=== PATIENT | female | born 1960 | race Caucasian/White ===

== ENCOUNTER 2021-11-17 07:10 | Outpatient (CLI) | payer OTHER ==
[~2021-11-17] VITALS: Ht 172.7 cm; Wt 77.3 kg
[~2021-11-17 07:10] MED LIST: DOXY100C2 PO; GFCD10B PO; MTP50T; MTP50T PO; NAPR-243 PO; ONDN4T PO; SERT50TA; TRM50T PO
[2021-11-22] MEDS ORDERED: AMLO-250 PO (14:35)
== END 2021-11-22 15:45 | disposition home or self-care (01) ==
LOC: PREOP 07:10
PROVIDERS: ATTEND Surgery
DX: Z01.818 Encounter for other preprocedural examination (principal)

== ENCOUNTER 2021-12-22 06:03 | Day surgery (SDC) | payer OTHER ==
[2021-12-22] VITALS (11 sets, daily range): BP systolic 75–148; BP diastolic 46–86
[~2021-12-22] VITALS: Ht 172.7 cm; Wt 77.3 kg
[~2021-12-22 06:03] MED LIST changes: +AMLO-250 PO
[2021-12-22] MEDS ORDERED: ceFAZolin 2 GM IV Premixed 50 ML ONE (06:23)
[2021-12-22] MEDS ORDERED: ceFAZolin 2 GM IV Premixed 50 ML IV ONE (06:45)
[2021-12-22] MEDS ORDERED: LACTATED RINGERS 1,000 ML IV PRN (06:45)
[2021-12-22] MEDS ORDERED: LIDOCAINE/EPI 1%-1:200,000 (XYLOCAINE) 30 ML VIAL ONE (07:07)
[2021-12-22] MEDS ORDERED: ONDANSETRON 4 MG/2 ML (SDV) Z0FRAN ONE (08:02)
[2021-12-22] MEDS ORDERED: proPOfol 200 MG/20 ML (DIPRIVAN) VIAL IV ONE (08:02)
[2021-12-22] MEDS ORDERED: fentaNYL INJ 100 MCG/2 ML AMP ONE (08:02)
[2021-12-22] MEDS ORDERED: LIDOCAINE PF 2% 5 ML (XYLOCAINE) VIAL ONE (08:02)
[2021-12-22] MEDS ORDERED: ROCURONIUM 10 MG/ML 5 ML SYRINGE IV ONE (08:02)
[2021-12-22] MEDS ORDERED: SEVOFLURANE (ULTANE) 15 ML INHAL SOLN ONE ×2 (08:02→09:01)
[2021-12-22] MEDS ORDERED: MIDAZOLAM 2 MG/2 ML (VERSED) VIAL ONE (08:02)
[2021-12-22] MEDS ORDERED: ATROPINE INJ 0.4 MG/ML SDV ONE (08:51)
--- NOTE | 2021-12-22 09:10 | Anesthesia-General Post-Op ---
General Patient Condition Mental Status/LOC: Same as Preop Cardiovascular: Satisfactory Nausea/Vomiting: Absent Respiratory: Satisfactory Pain: Controlled Complications: Absent Post Op Complications Complications None Follow Up Care/Instructions Patient Instructions None needed. Anesthesia/Patient Condition Patient Condition Patient is doing well, no complaints, stable vital signs, no apparent adverse anesthesia problems. No complications reported per nursing. JACK DEL CID CRNA Dec 22, 2021 09:10
[2021-12-22] MEDS ORDERED: fentaNYL INJ 100 MCG/2 ML AMP IVP ONE (09:15)
[2021-12-22] MEDS ORDERED: MEPERIDINE (DEMEROL) INJ 50 MG/ML IVP ONE (09:15)
[2021-12-22] MEDS ORDERED: morphine INJ 10 MG/ML 1ML (SYR OR VIAL) IVP ONE (09:15)
[2021-12-22] MEDS ORDERED: ONDANSETRON 4 MG/2 ML (SDV) Z0FRAN IVP PRN (09:15)
--- NOTE | 2021-12-22 09:44 | Discharge Inst-Simple/Standard ---
Discharge Inst-Standard Patient Instructions/Follow Up Plan of Care/Instructions/FU: 12-14 days Elliot (suture removal) Activity as Tolerated: Yes Discharge Diet: Regular Diet Other Inst to Patient Follow up Appt: Make appointment for 12-14 day Instructions: No strenuous activity. May shower in 24 hours, no tub bath or soaking. Use incentive spirometer at home as directed. No Smoking Skin/Wound Care: Keep area clean and dry. Symptoms to Report: Appetite Changes, Extremity Discoloration, Numbness/Tingling, Swelling Increased, Bleeding Excessive, Eyesight Changes, Pain Increased, Urine Color Change, Constipation(Persistent), Fever over 101 degree F, Pain/Pressure in chest, Urinating Difficulty, Cough Up/Vomit Blood, Heart Beat Irreg/Pounding, Pain/Pressure in jaw, Vaginal Bleeding Increase, Cramps in feet or legs, Light headedness, Pain/Pressure in shoulder, Diarrhea(Persistent), Memory Changes Suddenly, Questions/Concerns, Weight gain consecutive days, Dizziness/Fainting, Nausea/Vomiting, Shortness of Breath, Weight gain over 2 pounds If questions or concerns contact your physician Or seek help at emergency department. VIRGINIA HERRON DO Dec 22, 2021 09:44
--- NOTE | 2021-12-23 09:21 | OPERATIVE REPORT ---
DATE OF SERVICE: 12/22/2021 PREOPERATIVE DIAGNOSIS: Right buttock cyst. POSTOPERATIVE DIAGNOSIS: Right buttock cyst. PROCEDURE: Excision of right buttock cyst 3.5 x 1.3 x 2.5 cm. SURGEON: Virginia Zarate DO ANESTHESIA: General with local. ESTIMATED BLOOD LOSS: Minimal. COMPLICATIONS: None. INDICATIONS: The patient is a 61-year-old female with a cyst on the right buttock area. She understands risks and benefits of procedure and wishes to proceed. Consent was signed in the chart. DESCRIPTION OF PROCEDURE: The patient was taken to the operating suite. She was prepped and draped in a sterile fashion. Timeout was performed. Local anesthetic was infiltrated around the cyst area. An elliptical incision was made around the cyst where there was a small opening in the skin. Cautery was used to dissect around it until completely removed, with cavity size measuring approximately 3.5 x 1.3 x 2.5 cm. A small hole was made, and the cyst was drained a little bit of the cystic material, but was able to remove the entire cyst wall. Wound was then irrigated with copious amounts of irrigation. Skin was then closed using vertical mattress with 3-0 nylon. The area was washed, and dried and sterile bandage was applied. The cyst was in the subcutaneous tissue plane. Job ID: [id number] DocumentID: [id number] Dictated Date: 12/22/2021 20:43:07 Building Maintenance Worker Date: 12/23/2021 00:40:17 Dictated By: VIRGINIA ZARATE DO
== END 2021-12-22 10:55 | disposition home or self-care (01) ==
LOC: SDC 06:03
PROVIDERS: ATTEND Surgery
DX: L72.0 Epidermal cyst (principal); F17.210 Nicotine dependence, cigarettes, uncomplicated; Z86.16 Personal history of COVID-19
CPT/HCPCS: 87081

== ENCOUNTER 2022-07-19 11:51 | Inpatient (IN) | payer OTHER ==
[~2022-07-19] VITALS: Ht 172.7 cm; Wt 80.1 kg
[2022-07-19 12:09] LABS: BASOPHILS % (AUTO) 0 % (0-10); EOSINOPHILS % (AUTO) 0 % (0-10); HEMATOCRIT 42 % (35-52); HEMOGLOBIN 14.3 g/dL (11.5-16.0); LYMPHOCYTES # (AUTO) 2.9 10^3/uL (1.0-4.0); LYMPHOCYTES % (AUTO) 28 % (12-44); MEAN CORPUSCULAR HEMOGLOBIN 33 pg (25-34); MEAN CORPUSCULAR HGB CONC 34 g/dL (32-36); MEAN CORPUSCULAR VOLUME 95 fL (80-99); MEAN PLATELET VOLUME 9.7 fL (9.0-12.2); MONOCYTES # (AUTO) 0.4 10^3/uL (0.0-1.0); MONOCYTES % (AUTO) 4 % (0-12); NEUTROPHILS # (AUTO) 7.1 10^3/uL (1.8-7.8); NEUTROPHILS % (AUTO) 68 % (42-75); PLATELET COUNT 272 10^3/uL (130-400); WHITE BLOOD COUNT 10.5 10^3/uL (4.3-11.0)
[2022-07-19 12:14] LABS: ALBUMIN 4.6 GM/DL (3.2-4.5); CHLORIDE 106 MMOL/L (98-107); POTASSIUM 3.7 MMOL/L (3.6-5.0); SODIUM 140 MMOL/L (135-145)
[2022-07-19 12:15] LABS: CALCIUM 9.6 MG/DL (8.5-10.1)
[2022-07-19 12:16] LABS: GLUCOSE 123 MG/DL (70-105)
[2022-07-19 12:17] LABS: CARBON DIOXIDE 21 MMOL/L (21-32)
[2022-07-19 12:18] LABS: BILIRUBIN,TOTAL 0.4 MG/DL (0.1-1.0)
[2022-07-19 12:20] LABS: ALKALINE PHOSPHATASE 81 U/L (40-136); GFR ESTIMATED 64
[2022-07-19 12:21] LABS: BUN/CREATININE RATIO 11
[2022-07-19 12:23] LABS: ALANINE AMINOTRANSFERASE 11 U/L (0-55)
[2022-07-19 12:24] LABS: FIBRIN DEGRADATION PRODUCTS 1.8 UG/ML (0.00-0.49); PROTHROMBIN TIME PATIENT 13.2 SEC (12.2-14.7)
[2022-07-19] MEDS ORDERED: IOHEXOL 350 MG/ML 100 ML (OMNIPAQUE 350) VIAL IV ONE (12:30)
[2022-07-19] MEDS ORDERED: CATHETER FLUSH 10 ML SYR IV PRN (12:30)
[2022-07-19] MEDS ORDERED: NS 100 ML (IVPB) BAG IV ONE (12:30)
[2022-07-19] MEDS ORDERED: HOLD METFORMIN - RECEIVED CONTRAST 20 ML VIAL IV SCH (12:30)
[2022-07-19 12:39] LABS: BILIRUBIN,URINE NEGATIVE (NEGATIVE); CLARITY,URINE CLEAR; COLOR,URINE YELLOW; GLUCOSE, URINE (UA) NEGATIVE (NEGATIVE); KETONES,URINE NEGATIVE (NEGATIVE); LEUKOCYTE ESTERASE ,URINE NEGATIVE (NEGATIVE); NITRITE,URINE NEGATIVE (NEGATIVE); PH,URINE 5.5 (5-9); PROTEIN,URINE NEGATIVE (NEGATIVE)
--- NOTE | 2022-07-19 12:44 | Diagnostic Imaging Report ---
INDICATION: Possible stroke. TIME OF EXAM: 12:21 p.m. Comparison is made with prior chest from 05/15/2013. FINDINGS: Heart size is normal. Lungs are clear. No infiltrates are seen. There is no effusion or pneumothorax. IMPRESSION: No acute cardiopulmonary process is detected. Dictated by: Dictated on workstation # [id number]
--- NOTE | 2022-07-19 12:44 | Diagnostic Imaging Report ---
PROCEDURE: CT head wo r/o stroke. TECHNIQUE: Multiple contiguous axial images were obtained through the brain without the use of intravenous contrast. Auto Exposure Controls were utilized during the CT exam to meet ALARA standards for radiation dose reduction. INDICATION: Weakness and double vision. COMPARISON: No prior studies are available for comparison. FINDINGS: Ventricles and sulci are within normal limits. There is periventricular low attenuation, consistent with chronic microvascular ischemia. No sulcal effacement or midline shift is identified. No acute intra-axial or extra-axial hemorrhage is detected. Cisterns are patent. Visualized paranasal sinuses are clear. IMPRESSION: Changes of chronic microvascular ischemia. No acute intracranial process is detected. Dictated by: Dictated on workstation # [id number]
--- NOTE | 2022-07-19 12:48 | Diagnostic Imaging Report ---
PROCEDURE: CT angiography of the head and CT angiography of the neck with and without contrast. TECHNIQUE: Contiguous noncontrast images were obtained from the skull base through the vertex. After intravenous contrast administration, helical CT angiography of the neck was performed. Source data was reformatted into 3D MIP projections. Delayed post contrast acquisition was also obtained. Auto Exposure Controls were utilized during the CT exam to meet ALARA standards for radiation dose reduction. INDICATION: Diplopia and weakness all over. No relevant comparison. Delayed postcontrast head CT revealed no abnormal or suspicious parenchymal or meningeal enhancement. There is some patchy subcortical and periventricular white matter hypodensities which may be small vessel sequelae. No sulcal effacement. There is patency of the major dural venous sinuses. There is no contrast extravasation. Left common carotid arises off the innominate as a variant. Great vessels showed no hemodynamically significant stenosis with moderate mixed soft and hard plaque in the left subclavian proximally. The right cervical vertebral artery is diminutive from its origin through its intradural segment, the left is of good caliber and dominant. There is mild intimal thickening and soft plaque at the left greater than right carotid bulb and bifurcation without significant stenosis. The major external carotid branches are widely patent. Soft plaque stenosis the origin of the right internal carotid by about 50% focally. Beyond that level its well opacified and normal in caliber. Head: There is a diminutive intradural right vertebral artery with dominant left vertebral nonfocal and widely patent. The basilar is widely patent. The bilateral P[employer] segments are well opacified and widely patent. The intracranial ICAs demonstrate non-stenosing calcified plaque at their cavernous segments. A1 segments patent. The a common patent. The bilateral anterior cerebral arteries are widely patent. The bilateral middle cerebral arterial segments and their primary branches widely patent. No thrombus, occlusion, aneurysm or vascular malformation is identified. IMPRESSION: Brain shows patchy nonspecific white matter changes but no hemorrhage or mass. CT angiogram neck shows a moderate 50% stenosis proximal right ICA owing to soft plaque, there is a dominant widely patent left vertebral artery and a diminutive right cervical vertebral artery. Head: No hemodynamic significant intracranial arterial stenosis, thrombus, aneurysm or vascular malformation. Dictated by: Dictated on workstation # [id number]
[2022-07-19] MEDS ORDERED: TENECTEPLASE 50 MG VIAL IV ONE ×2 (12:57→13:00)
[2022-07-19 13:11] LABS: BACTERIA,URINE FEW /HPF
[2022-07-19 13:12] LABS: AMORPHOUS SEDIMENT,UR MOD AMOR URATES /LPF
--- NOTE | 2022-07-19 13:27 | ED Neurological Problem ---
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 ALSO FEELS WEAK ALL OVER. Source: patient, family Exam Limitations: no limitations History of Present Illness Date Seen by Provider: Jul 19, 2022 Time Seen by Provider: 11:50 Initial Comments This 61-year-old woman presents to the emergency room with complaints of sudden onset of diplopia and disequilibrium that started abruptly at approximately 1045. Vision is near normal when looking to the left or straightahead, but she develops significant diplopia when looking to the right. Vision is slightly blurry to her when looking with the right eye alone, and that blurriness seems to be worse in the inferior [id number]. She also reports some numbness of the right corner of her mouth. She has not noted any significant weakness of the extremities. She denies any use of blood thinning medications. She does have history of hypertension and took her medications shortly before onset of symptoms. She is notably hypertensive during assessment. She has Kinesiotape on the left ankle due to a reported left ankle strain yesterday. NIH stroke score was 3. Stroke activation was paged. Her primary care provider is Dr. Dani doyle. Allergies and Home Medications Allergies Coded Allergies: No Known Drug Allergies (Unverified , 12/22/21) Patient Home Medication List Home Medication List Reviewed: Yes Amlodipine Besylate (Amlodipine Besylate) 5 Mg Tablet, 5 MG PO DAILY, (Reported) Entered as Reported by: MARY GRACE DIAL on 11/22/21 1435 Metoprolol Tartrate (Metoprolol Tartrate 50 Mg) 50 Mg Tablet, 1 EACH PO BID, (Reported) Entered as Reported by: EDMOND GUTIERREZ on 05/01/13 1601 Ondansetron Hcl (Zofran Po) 4 Mg Tab, 4 MG PO Q4H Prescribed by: NATHALY MOSQUERA on 05/15/13 1112 Sertraline Hcl (Zoloft) 50 Mg Tablet, (Reported) Entered as Reported by: KITTY GUTIERREZ on 07/21/09 0933 Tramadol Hcl (Ultram) 50 Mg Tab, 50 MG PO Q4H Prescribed by: NATHALY MOSQUERA on 05/01/13 1800 Review of Systems Review of Systems Constitutional: no symptoms reported Eyes: See HPI Ears, Nose, Mouth, Throat: no symptoms reported Respiratory: no symptoms reported Cardiovascular: see HPI Gastrointestinal: no symptoms reported Genitourinary: no symptoms reported : No Musculoskeletal: see HPI Skin: no symptoms reported Psychiatric/Neurological: See HPI Endocrine: No Symptoms Reported Hematologic/Lymphatic: No Symptoms Reported Past Sehzxtv-Bbrkmp-Pkoccx Hx Patient Social History Tobacco Use?: Yes Tobacco type used: Cigarettes Smoking Status: Current Everyday Smoker Substance use?: No Alcohol Use?: No Immunizations Up To Date First/Initial COVID19 Vaccinat: 12/29 Second COVID19 Vaccination Suhas: UNKNOWN 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 Past Medical History Surgeries: Yes Abdominal (Hemicolectomy due to colon polyps), Hysterectomy Respiratory: No Currently Using CPAP: No Currently Using BIPAP: No Cardiac: Yes Hypertension Neurological: No Reproductive Disorders: No 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 oz. 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 Vision slightly blurry in the right eye.), motor weakness (Slight weakness of the left leg) Crainal Nerves: normal hearing, normal speech, PERRL Coordination/Gait: normal finger to nose Motor/Sensory: no motor deficit, no sensory deficit Skin: normal color, warm/dry Stroke NIH Stroke Scale Assessment Select: Initial Level of Consciousness: 0=Alert (0), Level of Consciousness- Questions: 0=Answers both month/age (0), LOC Commands: 0=Performs both tasks (0), Gaze: Partial Gaze Palsy (1), Visual Ortiz: 1=Partial hemianopia (1), Facial Movement (Facial Paresis): 0=Normal symmetrical mnt (0), Motor Function-Arms Right: 0=Amputation/Joint fused (0), Motor Function-Arms Left: 0=Amputation/Joint fused (0), Motor Function-Legs Right: 0=No drift (0), Motor Function-Legs Left: 1=Drift (1), Limb Ataxia: 0=Absent (0), Sensory: 0=Normal:no loss (0), Best Language: 0=No aphasia (0), Dysarthria: 0=Normal (0), Extinction & Inattention: 0=No abnormality (0), Total: 3 Progress/Results/Core Measures Results/Orders Lab Results Laboratory Tests Test 07/19/22 11:55 07/19/22 11:58 07/19/22 12:32 Range/Units White Blood Count 10.5 4.3-11.0 10^3/uL Red Blood Count 4.39 3.80-5.11 10^6/uL Hemoglobin 14.3 11.5-16.0 g/dL Hematocrit 42 35-52 % Mean Corpuscular Volume 95 80-99 fL Mean Corpuscular Hemoglobin 33 25-34 pg Mean Corpuscular Hemoglobin Concent 34 32-36 g/dL Red Cell Distribution Width 12.2 10.0-14.5 % Platelet Count 272 130-400 10^3/uL Mean Platelet Volume 9.7 9.0-12.2 fL Immature Granulocyte % (Auto) 0 % Neutrophils (%) (Auto) 68 42-75 % Lymphocytes (%) (Auto) 28 12-44 % Monocytes (%) (Auto) 4 0-12 % Eosinophils (%) (Auto) 0 0-10 % Basophils (%) (Auto) 0 0-10 % Neutrophils # (Auto) 7.1 1.8-7.8 10^3/uL Lymphocytes # (Auto) 2.9 1.0-4.0 10^3/uL Monocytes # (Auto) 0.4 0.0-1.0 10^3/uL Eosinophils # (Auto) 0.0 0.0-0.3 10^3/uL Basophils # (Auto) 0.0 0.0-0.1 10^3/uL Immature Granulocyte # (Auto) 0.0 0.0-0.1 10^3/uL Prothrombin Time 13.2 12.2-14.7 SEC INR Comment 1.0 0.8-1.4 Activated Partial Thromboplast Time 35 24-35 SEC D-Dimer 1.80 H 0.00-0.49 UG/ML Sodium Level 140 135-145 MMOL/L Potassium Level 3.7 3.6-5.0 MMOL/L Chloride Level 106 98-107 MMOL/L Carbon Dioxide Level 21 21-32 MMOL/L Anion Gap 13 5-14 MMOL/L Blood Urea Nitrogen 11 7-18 MG/DL Creatinine 1.00 0.60-1.30 MG/DL Estimat Glomerular Filtration Rate 64 BUN/Creatinine Ratio 11 Glucose Level 123 H 70-105 MG/DL Calcium Level 9.6 8.5-10.1 MG/DL Corrected Calcium 8.5-10.1 MG/DL Total Bilirubin 0.4 0.1-1.0 MG/DL Aspartate Amino Transf (AST/SGOT) 17 5-34 U/L Alanine Aminotransferase (ALT/SGPT) 11 0-55 U/L Alkaline Phosphatase 81 40-136 U/L Troponin I < 0.028 <0.028 NG/ML Total Protein 8.0 6.4-8.2 GM/DL Albumin 4.6 H 3.2-4.5 GM/DL Glucometer 125 H 70-110 MG/DL Urine Color YELLOW Urine Clarity CLEAR Urine pH 5.5 5-9 Urine Specific [place] 1.020 1.016-1.022 Urine Protein NEGATIVE NEGATIVE Urine Glucose (UA) NEGATIVE NEGATIVE Urine Ketones NEGATIVE NEGATIVE Urine Nitrite NEGATIVE NEGATIVE Urine Bilirubin NEGATIVE NEGATIVE Urine Urobilinogen 0.2 < = 1.0 MG/DL Urine Leukocyte Esterase NEGATIVE NEGATIVE Urine RBC (Auto) 1+ H NEGATIVE Urine RBC 2-5 H /HPF Urine WBC 2-5 /HPF Urine Squamous Epithelial Cells 2-5 /HPF Urine Crystals PRESENT H /LPF Urine Amorphous Sediment MOD MAINE URATES H /LPF Urine Bacteria FEW H /HPF Urine Casts NONE /LPF Urine Mucus NEGATIVE /LPF Urine Culture Indicated YES My Orders Orders - NATHALY CARRION MD Ct Angio Head/Neck (07/19/22 12:06) Iohexol Injection (Omnipaque 350 Mg/Ml 1 (07/19/22 12:30) Received Contrast (Hold Metformin- Contr (07/19/22 12:30) Sodium Chloride Flush (Catheter Flush Sy (07/19/22 12:30) Ns (Ivpb) (Sodium Chloride 0.9% Ivpb Bag (07/19/22 12:30) Vital Signs Stroke Patient Q15M (07/19/22 12:56) Dysphagia Screening Tool Q10MX1 (07/19/22 12:56) Post Thrombolytic Adminstratio (07/19/22 12:56) Tenecteplase (Tnkase) (07/19/22 13:00) Post Thrombolytic Adminstratio (07/19/22 12:56) Ct Head Wo (07/20/22 12:56) Tenecteplase (Tnkase) (07/19/22 12:57) Ct Head Wo-R/O Stroke (07/19/22 14:12) Medications Given in ED Current Medications Medications Dose Ordered Sig/Macy Route Start Time Stop Time Status Last Admin Dose Admin Iohexol 75 ml ONCE ONCE IV 07/19/22 12:30 07/19/22 12:31 DC 07/19/22 12:44 75 ML Sodium Chloride 10 ml NEEDED PRN IV 07/19/22 12:30 07/19/22 12:45 10 ML Sodium Chloride 100 ml ONCE ONCE IV 07/19/22 12:30 07/19/22 12:31 DC 07/19/22 12:44 80 ML Tenecteplase 19.25 mg ONCE ONCE IV 07/19/22 13:00 07/19/22 13:01 DC 07/19/22 13:08 19.25 MG Vital Signs/I&O 07/19/22 07/19/22 11:51 13:08 Temp 36.9 Pulse 99 88 Resp 16 B/P (MAP) 197/117 (143) 156/83 Pulse Ox 98 O2 Delivery Room Air Blood Pressure Mean: 107 FSBG Bedside Testing Finger Stick Blood Glucose: 125 Progress Progress Note #1: Time: 13:30 Progress Note Stroke activation was paged. Patient was taken to CT as soon as CT scanner was available. Dr. Johnson, stroke neurologist at [facility], was consulted at 1230. Because there were associated symptoms of numbness of the face (and later some right facial droop) and disequilibrium, he believed symptoms are more likely due to a midbrain stroke rather than a peripheral 3rd nerve palsy. He advised offering tenecteplase. CT of the head was reviewed by me and reviewed with the radiologist. There were no acute hemorrhages or masses appreciated. CT angiogram was obtained and showed no large vessel occlusions. I discussed use of tenecteplase including risks and benefits. Risks included potentially up to a 6% chance of serious or life threatening bleed. Benefits included possible improvement or resolution of the neurologic deficits. After discussing with patient and her and answering their questions, patient elected to proceed with tenecteplase. Progress Note #2: Time: 13:54 Progress Note Report was given to eICU. Progress Note #3: Time: 14:16 Progress Note ER staff reports that patient was able to ambulate to the restroom on her own power. She did exhibit some disequilibrium as if she were intoxicated. I checked on patient and she complained of a "zigzagy" disturbance in her right eye vision. The palsy seemed unchanged. She also complained of some mild frontal headache. Because of the change in symptoms and accompanying headache after administration of thrombolytics, we are rescanning her head before transferring her to the ICU. Initial ECG Impression Date: Jul 19, 2022 Initial ECG Impression Time: 12:59 Initial ECG Rate: 89 Initial ECG Rhythm: Normal Sinus Initial ECG Impression: Normal Comment Normal sinus rhythm with no ST elevation or depression. No abnormal intervals or axis deviation. Diagnostic Imaging Diagonstic Imaging: CT Plain Films/CT/US/NM/MRI: head Comments CT head viewed by me and report reviewed. Discussed with radiologist. 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 TECHNIQUE: Multiple contiguous axial images were obtained through the brain without the use of intravenous contrast. Auto Exposure Controls were utilized during the CT exam to meet ALARA standards for radiation dose reduction. INDICATION: Weakness and double vision. COMPARISON: No prior studies are available for comparison. FINDINGS: Ventricles and sulci are within normal limits. There is periventricular low attenuation, consistent with chronic microvascular ischemia. No sulcal effacement or midline shift is identified. No acute intra-axial or extra-axial hemorrhage is detected. Cisterns are patent. Visualized paranasal sinuses are clear. IMPRESSION: Changes of chronic microvascular ischemia. No acute intracranial process is detected. Dictated on workstation # [id number] Dict: 07/19/22 1238 Trans: 07/19/22 1243 [id number] Interpreted by: EZ HURLEY MD Reviewed: Reviewed by Me Diagonstic Imaging: CT Plain Films/CT/US/NM/MRI: other (Angiogram head and neck) Comments CT report reviewed. See report below: NAME: SHARON CORDERO [facility] REC#: [id number] PT STATUS: REG ER : 1960 PHYSICIAN: NATHALY CARRION MD ADMIT DATE: 07/19/22/ER Draft Date of Exam:07/19/22 CT ANGIO HEAD/NECK PROCEDURE: CT angiography of the head and CT angiography of the neck with and without contrast. TECHNIQUE: Contiguous noncontrast images were obtained from the skull base through the vertex. After intravenous contrast administration, helical CT angiography of the neck was performed. Source data was reformatted into 3D MIP projections. Delayed post contrast acquisition was also obtained. Auto Exposure Controls were utilized during the CT exam to meet ALARA standards for radiation dose reduction. INDICATION: Diplopia and weakness all over. No relevant comparison. Delayed postcontrast head CT revealed no abnormal or suspicious parenchymal or meningeal enhancement. There is some patchy subcortical and periventricular white matter hypodensities which may be small vessel sequelae. No sulcal effacement. There is patency of the major dural venous sinuses. There is no contrast extravasation. Left common carotid arises off the innominate as a variant. Great vessels showed no hemodynamically significant stenosis with moderate mixed soft and hard plaque in the left subclavian proximally. The right cervical vertebral artery is diminutive from its origin through its intradural segment, the left is of good caliber and dominant. There is mild intimal thickening and soft plaque at the left greater than right carotid bulb and bifurcation without significant stenosis. The major external carotid branches are widely patent. Soft plaque stenosis the origin of the right internal carotid by about 50% focally. Beyond that level its well opacified and normal in caliber. Head: There is a diminutive intradural right vertebral artery with dominant left vertebral nonfocal and widely patent. The basilar is widely patent. 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 The intracranial ICAs demonstrate non-stenosing calcified plaque at their cavernous segments. A1 segments patent. The a common patent. The bilateral anterior cerebral arteries are widely patent. The bilateral middle cerebral arterial segments and their primary branches widely patent. No thrombus, occlusion, aneurysm or vascular malformation is identified. IMPRESSION: Brain shows patchy nonspecific white matter changes but no hemorrhage or mass. CT angiogram neck shows a moderate 50% stenosis proximal right ICA owing to soft plaque, there is a dominant widely patent left vertebral artery and a diminutive right cervical vertebral artery. Head: No hemodynamic significant intracranial arterial stenosis, thrombus, aneurysm or vascular malformation. Dictated on workstation # [id number] Dict: 07/19/22 1237 Trans: 07/19/22 1248 [facility] [id number] Interpreted by: ROBBI VIZCARRA Reviewed: Reviewed by Me Diagonstic Imaging: Xray Plain Films/CT/US/NM/MRI: chest Comments NAME: CORDEROSHARON A MED REC#: [id number] PT STATUS: REG ER : 1960 PHYSICIAN: SERA TELLES GEOPHYSICAL E LOGGER ADMIT DATE: 07/19/22/ER Draft Date of Exam:07/19/22 CHEST 1 VIEW, AP/PA ONLY INDICATION: Possible stroke. TIME OF EXAM: 12:21 p.m. Comparison is made with prior chest from 05/15/2013. FINDINGS: Heart size is normal. Lungs are clear. No infiltrates are seen. There is no effusion or pneumothorax. IMPRESSION: No acute cardiopulmonary process is detected. Dictated on workstation # [id number] Dict: 07/19/22 1241 Trans: 07/19/22 1244 [id number] Interpreted by: EZ HURLEY MD Critical Care Note Critical Care Start Time: 11:50 Stop Time: 13:50 Progress At least 30 minutes of critical care was given to this patient in regard to emergent evaluation of acute stroke and treatment with tenecteplase. This includes consultation with the stroke neurologist, discussion of risks and benefits of thrombolytics with the patient, discussion with the admitting physician and eICU, review of imaging and discussion with radiologist, review of labs, etc. Departure Communication (Admissions) Time/Spoke to Admitting Phy: 13:40 Dr. 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 Referrals: NO,LOCAL PHYSICIAN (PCP/Family) Primary Care Physician NATHALY CARRION MD Jul 19, 2022 13:27
--- NOTE | 2022-07-19 14:02 | Tele-ICU Progress Note ---
Subjective Date Seen by a Provider: Jul 19, 2022 Subjective/Events-last exam This virtual visit was conducted using real time audio/video. Thank you for asking us to see this patient for new midbrain CVA. Recent events: Received Tenecteplase following discussion with neurology. PMH: Htn., dep. SH: smoking history N FH: Non-contributory ROS:as in HPI PE: VSS. O2 sat 98% on RA. HEENT: No obvious masses, adenopathy or JVD. Chest: clear to auscultation. CV: RRR S1 S2 No murmur or added sounds. Abd: Non-tender. Bowel sounds Y. : Unremarkable. 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 Extremities: edema. Capillary refill < 3 seconds. Skin: unremarkable. Results: Elevated BG 123, D-Dimer 1.8. CXR: cllear. CTH: nil acute. Available chart/ vitals / labs / images reviewed. Video assessment done using teleICU camera, rest of exam as per RN. A/P: Critical Care: critically ill patient. Cont. IVF, neuro checks. Discussed with RN Letitia and ER MD Dr. Escobar. Asked RN to reach out to eICU if any questions or concerns later. Time spent with patient/coordination of care with other health professionals (mins): 22 Sepsis Event Evaluation Height, Weight, BMI Height: '" Weight: 158lbs. oz. 71.500894al; 26.00 BMI Method:Stated Exam Exam Patient acknowledged, consented, and participated in this virtual visit which was conducted using real time audio/video Vital Signs Date Time Temp Pulse Resp B/P (MAP) Pulse Ox O2 Delivery O2 Flow Rate FiO2 07/19/22 13:08 88 156/83 07/19/22 11:51 36.9 99 16 197/117 (143) 98 Room Air Height & Weight Height: '" Weight: 158lbs. oz. 71.905324jz; 26.00 BMI Method:Stated General Appearance: No Apparent Distress (See free text) Capillary Refill: Less Than 3 Seconds Peripheral Pulses: 1+ Dorsalis Pedis (R), 1+ Left Dors-Pedis (L) Gastrointestinal: non tender, soft; No distended Results Lab Laboratory Tests 07/19/22 11:55 Assessment/Plan Assessment/Plan See free text Critical Care: Critically Ill Patient CHATO SALOMON MD Jul 19, 2022 14:02
--- NOTE | 2022-07-19 14:38 | Diagnostic Imaging Report ---
PROCEDURE: CT head wo r/o stroke. TECHNIQUE: Multiple contiguous axial images were obtained through the brain without the use of intravenous contrast. Auto Exposure Controls were utilized during the CT exam to meet ALARA standards for radiation dose reduction. INDICATION: Blurred vision and headache. Patient had TPA. COMPARISON: Correlation is made with the head CT performed earlier the same day. FINDINGS: Ventricular size and sulcal pattern are stable. There is some residual intravascular contrast from recent CT angiogram. No definite hemorrhage is detected. There is no mass effect or midline shift. Cisterns are patent. Visualized paranasal sinuses are clear. IMPRESSION: No acute intracranial process is detected. Dictated by: Dictated on workstation # [id number]
[2022-07-19] MEDS ORDERED: NS IV 500 ML 500 ML IV PRN (15:30)
[2022-07-19] MEDS ORDERED: ONDANSETRON 4 MG/2 ML (SDV) Z0FRAN IV PRN (15:45)
[2022-07-19] MEDS ORDERED: CATHETER FLUSH 10 ML SYR IVP PRN (15:45)
[2022-07-19] MEDS ORDERED: L.AC1CAP10 PO (17:24)
[2022-07-19] MEDS ORDERED: SERT-414 PO (17:24)
[2022-07-19] MEDS ORDERED: FEXO180T84 PO (17:24)
[2022-07-19] MEDS ORDERED: ALPR0.254 PO (17:24)
--- NOTE | 2022-07-19 18:49 | History & Physical ---
History of Present Illness History of Present Illness Reason for visit/HPI This is a 61 year old female with a known history of hypertension who was brought to the emergency room by her due to sudden onset of double vision and imbalance. She also reported numbness to the right side of her mouth. When she arrived in the emergency room she was hypertensive with a blood pressure of 197/117. 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 She was also noted to have mild right facial droop. Her NIH stroke was 3. Stroke activation was paged. A CT angiogram of the head and neck showed no acute bleed or acute ischemia. There was 50% stenosis of her right ICA. Dr. Johnson, stroke neurologist at [facility], was consulted and felt her presentation and symptoms were consistent with a midbrain stroke and she was a candidate for tenecteplase. Patient agreed to the treatment and will be admitted to the ICU. Date of Admission Jul 19, 2022 at 13:49 Date Seen by a Provider: Jul 19, 2022 Time Seen by a Provider: 18:43 I consulted on this patient on 07/19/22 18:43 Attending Physician Silvestre Bonilla DO Admitting Physician Admitting Physician: Silvestre Bonilla DO Attending Physician: Silvestre Bonilla DO Consult Allergies and Home Medications Allergies Coded Allergies: No Known Drug Allergies (Unverified , 12/22/21) Patient Home Medication List Home Medication List Reviewed: Yes ALPRAZolam (ALPRAZolam) 0.25 Mg Tablet, 0.25 MG PO DAILY PRN for ANXIETY, (Reported) Entered as Reported by: MARCUS SIGALA on 07/19/221723 Last Action: Reviewed Amlodipine Besylate (Amlodipine Besylate) 5 Mg Tablet, 5 MG PO DAILY, (Reported) Entered as Reported by: MARY GRACE DIAL on 11/22/21 1435 Last Action: Reviewed Fexofenadine HCl (Abi Allergy) 180 Mg Tablet, 180 MG PO DAILY, (Reported) Entered as Reported by: MARCUS SIGALA on 07/19/221723 Last Action: Reviewed L.acid/L.casei/B.bif/B.gui/Fos (Probiotic Blend Capsule) 2 Billion Cell-50 Mg C apsule, 1 EACH PO DAILY, (Reported) Entered as Reported by: MARCUS SIGALA on 07/19/22 172 Last Action: Reviewed Metoprolol Tartrate (Metoprolol Tartrate 50 Mg) 50 Mg Tablet, 50 MG PO BID, (Reported) Entered as Reported by: EDMOND GUTIERREZ on 05/01/13 1601 Last Action: Reviewed Sertraline HCl (Sertraline HCl) 100 Mg Tablet, 50 MG PO BID, (Reported) Entered as Reported by: MARCUS SIGALA on 07/19/22 172 Last Action: Reviewed Discontinued Medications Ondansetron Hcl (Zofran Po) 4 Mg Tab, 4 MG PO Q4H Discontinued Reason: No Longer Taking Prescribed by: NATHALY MOSQUERA on 05/15/13 1112 Last Action: Discontinued Sertraline Hcl (Zoloft) 50 Mg Tablet, (Reported) Discontinued Reason: Duplicate Order Entered as Reported by: KITTY GUTIERREZ on 07/21/09 0933 Last Action: Discontinued Tramadol Hcl (Ultram) 50 Mg Tab, 50 MG PO Q4H Discontinued Reason: No Longer Taking Prescribed by: NATHALY MOSQUERA on 05/01/13 1800 Last Action: Discontinued Past Emhvkfh-Zcosin-Bmsicj Hx Patient Social History Marrital Status: Employed/Student: employed Tobacco Use?: Yes Tobacco type used: Cigarettes Smoking Status: Heavy Tobacco Smoker Smokeless Tobacco Frequency: Current Everyday User, Heavy User Use of E-Cig and/or Vaping dev: No Substance use?: No Alcohol Use?: No Pt feels they are or have been: No Immunizations Up To Date Date of Influenza Vaccine: Jul 22, 2021 First/Initial COVID19 Vaccinat: 12/29 Second COVID19 Vaccination Suhas: UNKNOWN Current Status status: No status: No Advance Directives: No Communicates: Verbally Primary Language: Citizen Of [place] Preferred Spoken Language: Citizen Of [place] Sensory deficits: Vision impairment Implanted or Applied Medical D: None Past Medical History Surgeries: Abdominal (Hemicolectomy due to colon polyps), Hysterectomy Currently Using CPAP: No Currently Using BIPAP: No Hypertension [employer] History: Hysterectomy Polyps Anxiety, Depression Psoriasis Blood Disorders: No Family Medical History Heart Disease, Diabetes Review of Systems Constitutional: dizziness EENTM: other (double vision) Respiratory: No no symptoms reported, No see HPI, No cough, No dyspnea on exertion, No hemoptysis, No orthopnea, No phlegm, No short of breath, No stridor, No wheezing, No other Cardiovascular: No no symptoms reported, No see HPI, No chest pain, No edema, No Hx of Intervention, No palpitations, No syncope, No vascular heart diseas, No other Gastrointestinal: No RUQ, No LUQ, No RLQ, No LLQ, No no symptoms reported, No see HPI, No abdominal pain, No constipation, No diarrhea, No dysphagia, No hematemesis, No heartburn, No jaundice, No loss of appetite, No melena, No nausea, No vomiting, No other Genitourinary: No no symptoms reported, No see HPI, No decreased output, No discharge, No dysuria, No frequency, No hematuria, No hesitancy, No incontinence, No nocturia, No pain, No other Musculoskeletal: joint pain (left ankle) Skin: No no symptoms reported, No see HPI, No change in color, No change in hair/nails, No dryness, No hx of skin cancer, No lesions, No lumps, No pruritus, No rash, No other Psychiatric/Neurological: Numbness (right corner of mouth), Other (disequ ilibrium) Physical Exam Vital Signs Vital Signs - First Documented 07/19/22 11:51 Temp 36.9 Pulse 99 Resp 16 B/P (MAP) 197/117 (143) Pulse Ox 98 O2 Delivery Room Air Capillary Refill : Less Than 3 Seconds Height, Weight, BMI Height: '" Weight: 158lbs. oz. 71.074228ny; 25.81 BMI Method:Stated General Appearance: No Apparent Distress Eyes: Right Eye Abnormal EOM Neck: Supple Respiratory: Lungs Clear Cardiovascular: Regular Rate, Rhythm, Gallop/S4 Gastrointestinal: Normal Bowel Sounds, Non Tender, Soft Rectal: Deferred Back: No CVA Tenderness Extremity: Non Tender, No Calf Tenderness, No Pedal Edema Neurologic/Psychiatric: Alert, Oriented x3, No Motor/Sensory Deficits, Normal Mood/Affect Skin: Warm/Dry Comments Laboratory Tests 07/19/22 11:55: White Blood Count 10.5, Red Blood Count 4.39, Hemoglobin 14.3, Hematocrit 42, Mean Corpuscular Volume 95, Mean Corpuscular Hemoglobin 33, Mean Corpuscular Hemoglobin Concent 34, Red Cell Distribution Width 12.2, Platelet Count 272, Mean Platelet Volume 9.7, Immature Granulocyte % (Auto) 0, Neutrophils (%) (Auto) 68, Lymphocytes (%) (Auto) 28, Monocytes (%) (Auto) 4, Eosinophils (%) (Auto) 0, Basophils (%) (Auto) 0, Neutrophils # (Auto) 7.1, Lymphocytes # (Auto) 2.9, Monocytes # (Auto) 0.4, Eosinophils # (Auto) 0.0, Basophils # (Auto) 0.0, Immature Granulocyte # (Auto) 0.0, Prothrombin Time 13.2, INR Comment 1.0, Activated Partial Thromboplast Time 35, D-Dimer 1.80H, Sodium Level 140, Potassium Level 3.7, Chloride Level 106, Carbon Dioxide Level 21, Anion Gap 13, Blood Urea Nitrogen 11, Creatinine 1.00, Estimat Glomerular Filtration Rate 64, BUN/Creatinine Ratio 11, Glucose Level 123H, Calcium Level 9.6, Corrected Calcium , Total Bilirubin 0.4, Aspartate Amino Transf (AST/SGOT) 17, Alanine Aminotransferase (ALT/SGPT) 11, Alkaline Phosphatase 81, Troponin I < 0.028, Total Protein 8.0, Albumin 4.6H 07/19/22 11:58: Glucometer 125H 07/19/22 12:32: Urine Color YELLOW, Urine Clarity CLEAR, Urine pH 5.5, Urine Specific [place] 1.020, Urine Protein NEGATIVE, Urine Glucose (UA) NEGATIVE, Urine Ketones NEGATIVE, Urine Nitrite NEGATIVE, Urine Bilirubin NEGATIVE, Urine Urobilinogen 0.2, Urine Leukocyte Esterase NEGATIVE, Urine RBC (Auto) 1+H, Urine RBC 2-5H, Urine WBC 2-5, Urine Squamous Epithelial Cells 2-5, Urine Crystals PRESENTH, Urine Amorphous Sediment MOD MAINE URATESH, Urine Bacteria FEWH, Urine Casts NONE, Urine Mucus NEGATIVE, Urine Culture Indicated YES Assessment/Plan Assessment and Plan 1. Acute Ischemic Cerebrovascular Accident--Midbrain Stroke--S/P tenecteplase, admit to ICU with neurochecks, start aspirin tomorrow, start atorvastatin tonight, 2-D ECHO tomorrow, start PT/OT tomorrow 2. Right Carotid Artery Stenosis--medical management as above and monitor 3. Hypertension--hydralazine low dose for BP greater than 160/90 4. Tobacco Abuse--smoking cessation Admission Diagnosis Admission Status: Inpatient Order (span 2 midnights) Reason for Inpatient Admission: Will need monitoring overnight in ICU then start therapies for stroke SILVESTRE BONILLA DO Jul 19, 2022 18:49
[2022-07-19] MEDS: DOCUSATE SODIUM 100 MG (COLACE) CAP PO SCH (20:14)
[2022-07-19] MEDS ORDERED: ACETAMINOPHEN 325 MG TABLET ONE (21:56)
[2022-07-19] MEDS: ACETAMINOPHEN 325 MG TABLET PO PRN (22:12)
[2022-07-19] MEDS: CATHETER FLUSH 10 ML SYR IVP SCH (22:15)
[2022-07-20 04:51] LABS: BASOPHILS % (AUTO) 0 % (0-10); EOSINOPHILS % (AUTO) 0 % (0-10); HEMATOCRIT 37 % (35-52); HEMOGLOBIN 12.7 g/dL (11.5-16.0); LYMPHOCYTES # (AUTO) 3.2 10^3/uL (1.0-4.0); LYMPHOCYTES % (AUTO) 39 % (12-44); MEAN CORPUSCULAR HEMOGLOBIN 33 pg (25-34); MEAN CORPUSCULAR HGB CONC 35 g/dL (32-36); MEAN CORPUSCULAR VOLUME 95 fL (80-99); MEAN PLATELET VOLUME 9.6 fL (9.0-12.2); MONOCYTES # (AUTO) 0.5 10^3/uL (0.0-1.0); MONOCYTES % (AUTO) 6 % (0-12); NEUTROPHILS # (AUTO) 4.5 10^3/uL (1.8-7.8); NEUTROPHILS % (AUTO) 55 % (42-75); PLATELET COUNT 228 10^3/uL (130-400); WHITE BLOOD COUNT 8.2 10^3/uL (4.3-11.0)
[2022-07-20 05:00] LABS: ALBUMIN 3.9 GM/DL (3.2-4.5); POTASSIUM 3.7 MMOL/L (3.6-5.0)
[2022-07-20 05:01] LABS: CALCIUM 9.2 MG/DL (8.5-10.1)
[2022-07-20 05:03] LABS: TOTAL PROTEIN 6.7 GM/DL (6.4-8.2)
[2022-07-20 05:04] LABS: BILIRUBIN,TOTAL 0.5 MG/DL (0.1-1.0); TRIGLYCERIDES 217 MG/DL (<150); VLDL CHOLESTEROL 43 MG/DL (5-40)
[2022-07-20 05:06] LABS: CREATININE SERUM 0.92 MG/DL (0.60-1.30)
[2022-07-20 05:09] LABS: CHOLESTEROL 223 MG/DL (< 200)
[2022-07-20 05:10] LABS: HDL CHOLESTEROL 35 MG/DL (40-60)
[2022-07-20] MEDS: MAGNESIUM 1 GM/100 ML IVPB 100 ML IV SCH (06:16)
[2022-07-20] MEDS: KCL 20 MEQ TAB (K-DUR) PO SCH (06:16)
[2022-07-20] MEDS: POTASSIUM CL 10MEQ/50ML IVPB 50 ML IV SCH (06:16)
[2022-07-20] MEDS: CATHETER FLUSH 10 ML SYR IVP SCH ×3 (06:17→20:52)
--- NOTE | 2022-07-20 07:26 | Tele-ICU Progress Note ---
Subjective Date Seen by a Provider: Jul 20, 2022 Time Seen by a Provider: 07:21 Subjective/Events-last exam eICU rounds 61 yo F received TNK for apparant CVA with diplopia, ataxia, given TNK, At present diplopia is better, arm strength is equal, no facial deviation. getting an echocardiogram today Sepsis Event Evaluation Height, Weight, BMI Height: '" Weight: 158lbs. oz. 71.497073xr; 26.62 BMI Method:Stated Exam Exam Patient acknowledged, consented, and participated in this virtual visit which was conducted using real time audio/video Vital Signs Date Time Temp Pulse Resp B/P (MAP) Pulse Ox O2 Delivery O2 Flow Rate FiO2 07/20/22 06:00 59 15 143/75 (97) 94 Room Air 07/20/22 05:00 59 18 140/74 (96) 94 Room Air 07/20/22 04:00 57 16 151/71 (97) 94 Room Air 07/20/22 04:00 98 Room Air 07/20/22 03:00 110 27 110/95 (100) 97 Room Air 07/20/22 02:00 62 17 129/67 (87) 92 Room Air 07/20/22 01:00 61 15 138/81 (100) 93 Room Air 07/20/22 01:00 61 07/20/22 00:00 97 Room Air 07/20/22 00:00 77 17 155/82 (106) 91 Room Air 07/20/22 00:00 36.9 07/19/22 23:00 58 18 137/71 (93) 93 Room Air 07/19/22 22:00 57 22 131/71 (91) 95 Room Air 07/19/22 21:00 63 15 149/75 (99) 94 Room Air 07/19/22 20:30 96 Room Air 07/19/22 20:00 71 28 145/89 (107) 94 Room Air 07/19/22 20:00 37.1 07/19/22 19:41 58 07/19/22 19:00 62 20 144/89 (107) 96 Room Air 07/19/22 18:00 60 22 162/113 (129) 98 Room Air 07/19/22 17:00 80 10 143/106 (118) 98 Room Air 07/19/22 16:46 Room Air 07/19/22 16:00 64 17 140/95 (110) 99 Room Air 07/19/22 16:00 98 Room Air 07/19/22 15:51 66 07/19/22 15:30 63 13 144/77 (99) 98 Room Air 07/19/22 15:10 63 130/77 99 Room Air 07/19/22 13:08 88 156/83 07/19/22 11:51 36.9 99 16 197/117 (143) 98 Room Air I & O 07/20/22 07:00 Intake Total 1200 ml Balance 1200 ml Height & Weight Height: '" Weight: 158lbs. oz. 71.677396qa; 26.62 BMI Method:Stated General Appearance: No Apparent Distress Neck: Supple Respiratory: Lungs Clear Cardiovascular: Regular Rate, Rhythm, Gallop/S4 Capillary Refill: Less Than 3 Seconds Peripheral Pulses: 1+ Dorsalis Pedis (R), 1+ Left Dors-Pedis (L) Gastrointestinal: non tender, soft; No distended Extremity: Normal Capillary Refill, Normal Inspection, Non Tender, No Calf Tenderness, No Pedal Edema, Other (appetite fair) Neurologic/Psychiatric: Alert, Oriented x3, No Motor/Sensory Deficits, Normal Mood/Affect Skin: Warm/Dry Results Lab Laboratory Tests 07/19/22 11:55 07/20/22 04:35 Assessment/Plan Assessment/Plan post TNK, doing better, BP controlled, CT head from 07/19, shows no acute process, can go to F after CAT scan if ok Critical Care: Critically Ill Patient Time spent with patient (mins): 30 RAJ WALLS MD Jul 20, 2022 07:26
--- NOTE | 2022-07-20 07:44 | Progress Note ---
DIO BAXTER 07/20/22 0744: Subjective Date Seen by a Provider: Jul 20, 2022 Time Seen by a Provider: 07:37 Subjective/Events-last exam Following up on CVA, vertical gaze palsy, and diplopia Patient is feeling improved from yesterday She states her vision is better, in all directions. No more diplopia No longer feels paresthesia of the lateral border of her lips Strength of all extremities is intact Bowels and baldder moving appropriately No complaints of pain Eating okay Labs reviewed Objective Exam Last Set of Vital Signs Vital Signs Date Time Temp Pulse Resp B/P (MAP) Pulse Ox O2 Delivery O2 Flow Rate FiO2 07/20/22 07:36 36.3 07/20/22 06:00 59 15 143/75 (97) 94 Room Air Capillary Refill : Less Than 3 Seconds I&O Intake and Output 07/20/22 00:00 Intake Total 1000 ml Balance 1000 ml Intake Oral 1000 ml # Voids 4 Daily Weight Change No General: Alert, Oriented X3, Cooperative, No Acute Distress HEENT: Other (Vertical gaze palsy, no accommoidation ) Neck: Supple, No JVD Lungs: Clear to Auscultation Heart: Regular Rate, No Murmurs Abdomen: Normal Bowel Sounds, Soft Extremities: No Clubbing, No Cyanosis Skin: No Rashes, No Breakdown Neuro: Strength at 5/5 X4 Ext, Sensation Intact, Cranial Nerves 3-12 NL (Craina l nerve 3 palsy), Other (Gait is still unsteady, still drifting left) Psych/Mental Status: Mental Status NL Results Lab Laboratory Tests 07/19/22 11:55: White Blood Count 10.5, Red Blood Count 4.39, Hemoglobin 14.3, Hematocrit 42, Mean Corpuscular Volume 95, Mean Corpuscular Hemoglobin 33, Mean Corpuscular Hemoglobin Concent 34, Red Cell Distribution Width 12.2, Platelet Count 272, Mean Platelet Volume 9.7, Immature Granulocyte % (Auto) 0, Neutrophils (%) (Auto) 68, Lymphocytes (%) (Auto) 28, Monocytes (%) (Auto) 4, Eosinophils (%) (Auto) 0, Basophils (%) (Auto) 0, Neutrophils # (Auto) 7.1, Lymphocytes # (Auto) 2.9, Monocytes # (Auto) 0.4, Eosinophils # (Auto) 0.0, Basophils # (Auto) 0.0, Immature Granulocyte # (Auto) 0.0, Prothrombin Time 13.2, INR Comment 1.0, Activated Partial Thromboplast Time 35, D-Dimer 1.80H, Sodium Level 140, Potassium Level 3.7, Chloride Level 106, Carbon Dioxide Level 21, Anion Gap 13, Blood Urea Nitrogen 11, Creatinine 1.00, Estimat Glomerular Filtration Rate 64, BUN/Creatinine Ratio 11, Glucose Level 123H, Calcium Level 9.6, Corrected Calcium , Total Bilirubin 0.4, Aspartate Amino Transf (AST/SGOT) 17, Alanine Aminotransferase (ALT/SGPT) 11, Alkaline Phosphatase 81, Troponin I < 0.028, Total Protein 8.0, Albumin 4.6H 07/19/22 11:58: Glucometer 125H 07/19/22 12:32: Urine Color YELLOW, Urine Clarity CLEAR, Urine pH 5.5, Urine Specific [place] 1.020, Urine Protein NEGATIVE, Urine Glucose (UA) NEGATIVE, Urine Ketones NEGATIVE, Urine Nitrite NEGATIVE, Urine Bilirubin NEGATIVE, Urine Urobilinogen 0.2, Urine Leukocyte Esterase NEGATIVE, Urine RBC (Auto) 1+H, Urine RBC 2-5H, Urine WBC 2-5, Urine Squamous Epithelial Cells 2-5, Urine Crystals PRESENTH, Urine Amorphous Sediment MOD MAINE URATESH, Urine Bacteria FEWH, Urine Casts NONE, Urine Mucus NEGATIVE, Urine Culture Indicated YES 07/20/22 04:35: White Blood Count 8.2, Red Blood Count 3.89, Hemoglobin 12.7, Hematocrit 37, Mean Corpuscular Volume 95, Mean Corpuscular Hemoglobin 33, Mean Corpuscular Hemoglobin Concent 35, Red Cell Distribution Width 12.2, Platelet Count 228, Mean Platelet Volume 9.6, Immature Granulocyte % (Auto) 0, Neutrophils (%) (Auto) 55, Lymphocytes (%) (Auto) 39, Monocytes (%) (Auto) 6, Eosinophils (%) (Auto) 0, Basophils (%) (Auto) 0, Neutrophils # (Auto) 4.5, Lymphocytes # (Auto) 3.2, Monocytes # (Auto) 0.5, Eosinophils # (Auto) 0.0, Basophils # (Auto) 0.0, Immature Granulocyte # (Auto) 0.0, Sodium Level 137, Potassium Level 3.7, Chloride Level 106, Carbon Dioxide Level 22, Anion Gap 9, Blood Urea Nitrogen 9, Creatinine 0.92, Estimat Glomerular Filtration Rate 71, BUN/Creatinine Ratio 10, Glucose Level 95, Calcium Level 9.2, Corrected Calcium 9.3, Total Bilirubin 0.5, Aspartate Amino Transf (AST/SGOT) 17, Alanine Aminotransferase (ALT/SGPT) 10, Alkaline Phosphatase 64, Total Protein 6.7, Albumin 3.9, Phosphorus Level 4.0, Magnesium Level 2.0, Triglycerides Level 217H, Cholesterol Level 223H, LDL Cholesterol Direct 156H, VLDL Cholesterol 43H, HDL Cholesterol 35L Assessment/Plan Assessment/Plan Assess & Plan/Chief Complaint Acute Ischemic Cerebrovascular Accident--Midbrain Stroke--S/P Tenecteplase, In ICU with neurochecks Q1H Maintain aspirin and atorvastatin Obtain 2-D ECHO Continue PT/OT Repeat head CT Dysphagia evaluation Consult Cardiology Consider anti-platelet therapy moving forward (clopidogrel) depending on ECHO Move from ICU to floor Right Carotid Artery Stenosis-50 percent stenosis of Right ICA Medical management as above and monitor Hypertension Hydralazine low dose for BP greater than 160/90 Continue at home amlodipine and metoprolol Tobacco Abuse- Smoking cessation Vertical gaze palsy Continue Neurochecks Hyperlipidemia Continue with Statin Therapy Anxiety Continue with Sertraline SILVESTRE MORTENSEN DO 07/20/220: Supervisory-Addendum Brief Verification & Attestation Participated in pt care: history, physical Personally performed: exam, history, supervision of care Care discussed with: Medical Student Procedures: n/a Results interpretation: Verified all documentation Patient seen and assessed. Has repeat CT of head today at 24hrs post tenecteplase. Will also get 2-D ECHO today. Will consult cardiology--discussed possible loop recorder to assess for underlying arrhythmia. Start PT/OT. Start aspirin 325mg today at 24hr post tenecteplase infusion as long as CT of brain is stable. DIO BAXTER Jul 20, 2022 07:44 SILVESTRE MORTENSEN DO Jul 20, 2022 18:10
--- NOTE | 2022-07-20 07:44 | Occ Therapy Progress Note ---
Therapy Progress Note OT orders received and chart was reviewed. Per chart, pt received Tenecteplase (Tnkase) on 07/19/22 at 13:00. Pt unable to be seen until 24 hours after receiving TPA. OT will attempt evaluation after 1300 if medically appropriate. Sindi Brian OT Jul 20, 2022 07:43
[2022-07-20] MEDS: hydrALAZINE (APESOLINE) 20 MG/ML VIAL IV PRN ×2 (07:46→15:48)
[2022-07-20] MEDS: ACETAMINOPHEN 325 MG TABLET PO PRN ×3 (08:53→20:51)
[2022-07-20] MEDS: DOCUSATE SODIUM 100 MG (COLACE) CAP PO SCH ×2 (09:04→20:51)
--- NOTE | 2022-07-20 09:06 | Speech Therapy Progress Note ---
Therapy Progress Note Speech pathology received the consultation, reviewed the medical chart, and attempted completion at 0830. Per patient, she has no concerns with her speech, language, cognition, and swallowing- reporting all skills at baseline. Additionally, the patient "passed" the RN Dysphagia Screen and is tolerating a regular consistency diet with thin liquids. At this time, skilled speech pathology services are not warranted. RAFA ADAMS Jul 20, 2022 09:06
--- NOTE | 2022-07-20 09:55 | Consultation-Cardiology ---
HPI-Cardiology Cardiology Consultation: Date of Consultation 07/20/22 Time Seen by a Provider: 09:50 Date of Admission 07-19-22 Attending Physician Madhavi Bonilla DO Admitting Physician Admitting Physician: Madhavi Bonilla DO Attending Physician: Madhavi Bonilla DO Consulting Physician Nahid Morales MD HPI: Chief Complaint: Cryptogenic CVA Ms. Zapata is a 61 yr old female admitted to ICU 1 from the ED with CVA. She reports yesterday she was talking on the telephone when she developed a sudden onset of double vision which progressively became blurry. She states she had numbness in her lips on the right side of her face and drooping. She reports she went to get up and walk and was very unsteady in her gait. She reports some nausea. She states her spouse brought her to the hospital at which time she also felt as though her right eyelid was drooping. She denies any c/o upper and lower extremity weakness. No c/o dysphagia. She reports she did receive medicine in the ED (tPA). She reports he symptoms have continued to resolve. The facial droop and lip numbness has resolved. She continues to c/o some blurry, double vision in her right eye, be feels this is also improved. She denies any c/o palpitations. No c/o syncope or near syncope. No c/o CP. She smokes 1 PPD of cigs Review of Systems-Cardiology Review of Systems Constitutional: No chills, No fever, No malaise Eyes: As described under HPI, blurred vision, vision change Ears/Nose/Throat: No epistaxis, No nasal drainage, No recent hearing loss Respiratory: As described under HPI Cardiovascular: As described under HPI Gastrointestinal: As described under HPI Genitourinary: No dysuria, No hematuria : No Musculoskeletal: As describe under HPI Skin: No rash on exposed areas, No ulcerations on exposed areas Psychiatric/Neurological: As described under HPI; No anxiety, No depression, No seizure, No syncope Hematologic: No bleeding abnormalities OKF-Bccqkx-Rdunqi Hx Patient Social History Marrital Status: Employed/Student: employed Smoking Status: Heavy Tobacco Smoker 2nd Hand Smoke Exposure: Yes Have you traveled recently?: No Alcohol Use?: No Pt feels they are or have been: No Tobacco type used: Cigarettes Immunizations Up To Date Date of Influenza Vaccine: Jul 22, 2021 Past Medical History PMH As described under Assessment. Family Medical History Family Medical History: She reports she has a brother with a-fib. She reports her father had CAD and recently passed from an SC. Allergies and Home Medications Allergies Coded Allergies: No Known Drug Allergies (Unverified , 12/22/21) Patient Home Medication List Amlodipine Besylate (Amlodipine Besylate) 5 Mg Tablet, 5 MG PO DAILY, (Reported) Entered as Reported by: MARY GRACE DIAL on 11/22/211434 Last Action: Reviewed Ascorbate Calcium (Vitamin C) 500 Mg Tablet, 500 MG PO DAILY, (Reported) Entered as Reported by: MELISSA TRUJILLO on 07/20/221134 Last Action: Reviewed Cholecalciferol (Vitamin D3) (Vitamin D3) 25 Mcg (1000 Unit) Capsule, 25 MCG PO DAILY, (Reported) Entered as Reported by: MELISSA TRUJILLO on 07/20/221134 Last Action: Reviewed L.acid/L.casei/B.bif/B.gui/Fos (Probiotic Blend Capsule) 2 Billion Cell-50 Mg Capsule, 1 EACH PO DAILY, (Reported) Entered as Reported by: MARCUS SIGALA on 07/19/221723 Last Action: Reviewed Metoprolol Tartrate (Metoprolol Tartrate) 50 Mg Tablet, 50 MG PO BID, (Reported) Entered as Reported by: MELISSA TRUJILLO on 07/20/221134 Last Action: Reviewed Multivitamin (Multivitamin) 1 Each Tablet, 1 EACH PO DAILY, (Reported) Entered as Reported by: MELISSA TRUJILLO on 07/20/221134 Last Action: Reviewed Sertraline HCl (Sertraline HCl) 100 Mg Tablet, 50 MG PO BID, (Reported) Entered as Reported by: MARCUS SIGALA on 07/19/221723 Last Action: Reviewed Discontinued Medications ALPRAZolam (ALPRAZolam) 0.25 Mg Tablet, 0.25 MG PO DAILY PRN for ANXIETY, (Reported) Discontinued Reason: No Longer Taking Entered as Reported by: MARCUS SIGALA on 07/19/221723 Last Action: Discontinued Fexofenadine HCl (Abi Allergy) 180 Mg Tablet, 180 MG PO DAILY, (Reported) Discontinued Reason: No Longer Taking Entered as Reported by: MARCUS SIGALA on 07/19/22 1724 Last Action: Discontinued Metoprolol Tartrate (Metoprolol Tartrate 50 Mg) 50 Mg Tablet, 50 MG PO BID, (Reported) Discontinued Reason: Duplicate Order Entered as Reported by: EDMOND GUTIERREZ on 05/01/13 1601 Last Action: Discontinued Ondansetron Hcl (Zofran Po) 4 Mg Tab, 4 MG PO Q4H Discontinued Reason: No Longer Taking Prescribed by: NATHALY MOSQUERA on 05/15/13 1112 Last Action: Discontinued Sertraline Hcl (Zoloft) 50 Mg Tablet, (Reported) Discontinued Reason: Duplicate Order Entered as Reported by: KITTY GUTIERREZ on 07/21/09 0933 Last Action: Discontinued Tramadol Hcl (Ultram) 50 Mg Tab, 50 MG PO Q4H Discontinued Reason: No Longer Taking Prescribed by: NATHALY MOSQUERA on 05/01/13 1800 Last Action: Discontinued Physical Exam-Cardiology Physical Exam Vital Signs/I&O 07/20/22 07/20/22 07/20/22 07/20/22 04:00 04:00 05:00 06:00 Pulse 57 59 59 Resp 16 18 15 B/P (MAP) 151/71 (97) 140/74 (96) 143/75 (97) Pulse Ox 98 94 94 94 O2 Delivery Room Air Room Air Room Air Room Air 07/20/22 07/20/22 07/20/22 07/20/22 07:00 07:00 07:36 08:00 Temp 36.3 Pulse 98 97 Resp 26 B/P (MAP) 152/103 (119) Pulse Ox 93 98 O2 Delivery Room Air Room Air 07/20/22 07/20/22 07/20/22 07/20/22 08:00 09:00 10:00 11:00 Pulse 72 62 76 75 Resp 40 12 15 11 B/P (MAP) 118/83 (95) 125/74 (91) 164/125 (138) 154/100 (118) Pulse Ox 97 98 96 96 O2 Delivery Room Air Room Air Room Air Room Air 07/20/22 07/20/22 07/20/22 07/20/22 11:51 11:55 12:00 13:00 Temp 36.6 Pulse 60 64 Resp 16 B/P (MAP) 146/104 (118) Pulse Ox 98 98 O2 Delivery Room Air Room Air 07/20/22 00:00 Intake Total 1000 ml Balance 1000 ml Capillary Refill : Less Than 3 Seconds Constitutional: AAO x 3, well-developed, well-nourished HEENT: hearing is well preserved, oral hygience is good Neck: No carotid bruit; carotid pulses are 2 + bilaterally Respiratory: No accessory muscle use, No respiratory distress; chest expansion is symmetric, chest is bilaterally symmetric, other (prolonged exp phase) Cardiovascular: regular rate-rhythm; No JVD; S1 and S2 Gastrointestinal: No tender; soft, round, audible bowel sounds Extremities: no lower extremity edema bilateral Neurologic/Psychiatric: other (moves all extremities; AAOx3) Skin: No rash on exposed areas, No ulcerations on exposed areas Data Review Labs Laboratory Tests 07/20/22 04:35: White Blood Count 8.2, Red Blood Count 3.89, Hemoglobin 12.7, Hematocrit 37, Mean Corpuscular Volume 95, Mean Corpuscular Hemoglobin 33, Mean Corpuscular Hemoglobin Concent 35, Red Cell Distribution Width 12.2, Platelet Count 228, Mean Platelet Volume 9.6, Immature Granulocyte % (Auto) 0, Neutrophils (%) (Auto) 55, Lymphocytes (%) (Auto) 39, Monocytes (%) (Auto) 6, Eosinophils (%) (Auto) 0, Basophils (%) (Auto) 0, Neutrophils # (Auto) 4.5, Lymphocytes # (Auto) 3.2, Monocytes # (Auto) 0.5, Eosinophils # (Auto) 0.0, Basophils # (Auto) 0.0, Immature Granulocyte # (Auto) 0.0, Sodium Level 137, Potassium Level 3.7, Chloride Level 106, Carbon Dioxide Level 22, Anion Gap 9, Blood Urea Nitrogen 9, Creatinine 0.92, Estimat Glomerular Filtration Rate 71, BUN/Creatinine Ratio 10, Glucose Level 95, Calcium Level 9.2, Corrected Calcium 9.3, Phosphorus Level 4.0, Magnesium Level 2.0, Total Bilirubin 0.5, Aspartate Amino Transf (AST/SGOT) 17, Alanine Aminotransferase (ALT/SGPT) 10, Alkaline Phosphatase 64, Total Protein 6.7, Albumin 3.9, Triglycerides Level 217H, Cholesterol Level 223H, LDL Cholesterol Direct 156H, VLDL Cholesterol 43H, HDL Cholesterol 35L Microbiology 07/19/22 MRSA Screen - Final, Complete MRSA not isolated 07/19/22 Urine Culture - Preliminary, Resulted Lisa tropicalis Radiology NAME: SHARON ZAPATA [facility] REC#: [id number] PT STATUS: ADM IN : 1960 PHYSICIAN: NATHALY CARRION MD ADMIT DATE: 07/19/22/ICU Signed Date of Exam:07/19/22 CT ANGIO HEAD/NECK PROCEDURE: CT angiography of the head and CT angiography of the neck with and without contrast. TECHNIQUE: Contiguous noncontrast images were obtained from the skull base through the vertex. After intravenous contrast administration, helical CT angiography of the neck was performed. Source data was reformatted into 3D MIP projections. Delayed post contrast acquisition was also obtained. Auto Exposure Controls were utilized during the CT exam to meet ALARA standards for radiation dose reduction. INDICATION: Diplopia and weakness all over. No relevant comparison. Delayed postcontrast head CT revealed no abnormal or suspicious parenchymal or meningeal enhancement. There is some patchy subcortical and periventricular white matter hypodensities which may be small vessel sequelae. No sulcal effacement. There is patency of the major dural venous sinuses. There is no contrast extravasation. Left common carotid arises off the innominate as a variant. Great vessels showed no hemodynamically significant stenosis with moderate mixed soft and hard plaque in the left subclavian proximally. The right cervical vertebral artery is diminutive from its origin through its intradural segment, the left is of good caliber and dominant. There is mild intimal thickening and soft plaque at the left greater than right carotid bulb and bifurcation without significant stenosis. The major external carotid branches are widely patent. Soft plaque stenosis the origin of the right internal carotid by about 50% focally. Beyond that level its well opacified and normal in caliber. Head: There is a diminutive intradural right vertebral artery with dominant left vertebral nonfocal and widely patent. The basilar is widely patent. The bilateral GAS STATION MANAGER segments are well opacified and widely patent. The intracranial ICAs demonstrate non-stenosing calcified plaque at their cavernous segments. A1 segments patent. The a common patent. The bilateral anterior cerebral arteries are widely patent. The bilateral middle cerebral arterial segments and their primary branches widely patent. No thrombus, occlusion, aneurysm or vascular malformation is identified. IMPRESSION: Brain shows patchy nonspecific white matter changes but no hemorrhage or mass. CT angiogram neck shows a moderate 50% stenosis proximal right ICA owing to soft plaque, there is a dominant widely patent left vertebral artery and a diminutive right cervical vertebral artery. Head: No hemodynamic significant intracranial arterial stenosis, thrombus, aneurysm or vascular malformation. Dictated by: Dictated on workstation # [id number] Dict: 07/19/22 1237 Trans: 07/19/22 1649 DULCE [id number] Interpreted by: ROBBI VIZCARRA Electronically signed by: ROBBI VIZCARRA 07/19/22 1648 ECG Impression ECG Initial ECG Rhythm: Normal Sinus A/P-Cardiology Assessment/Admission Diagnosis Cryptogenic CVA - management per stroke team - CTA head on 07-19-22: Brain shows patchy nonspecific white matter changes but no hemorrhage or mass. - CT angiogram [id number] shows a moderate 50% stenosis proximal right ICA owing to soft plaque, there is a dominant widely patent left vertebral artery and a diminutive right cervical vertebral artery. HTN HLD Tobaccoism - 1 PPD cigs - cessation advised Discussion and Recomendations Cryptogenic CVA - management per stroke team - advise ILR implant prior to admission to eval for occult arrhythmia (a-fib/fl utter) - she is agreeable - Continue ASA Echocardiogram today Adjust anti-hypertensive regimen as indicated Monitor lab - replace electrolytes as indicated Add statin to regimen Further recs will be based on her hospital course We would like to thank Dr. Bonilla for this consult TRESA BARONE Jul 20, 2022 09:55
[2022-07-20] MEDS ORDERED: meTOprolol TARTRATE 50 MG (LOPRESSOR) TAB PO NR (10:30)
[2022-07-20] MEDS ORDERED: NICOTINE 14 MG (NICODERM) PATCH TD NR (11:15)
[2022-07-20] MEDS ORDERED: CHOL10007 PO (11:35)
[2022-07-20] MEDS ORDERED: METO50TA15 PO (11:35)
[2022-07-20] MEDS ORDERED: ASCO-262 PO (11:35)
[2022-07-20] MEDS ORDERED: MULT-1136 PO (11:35)
--- NOTE | 2022-07-20 13:24 | Diagnostic Imaging Report ---
CLINICAL INDICATION: Follow-up post thrombolysis. EXAM: Axial CT scan of the brain performed without IV contrast. Auto Exposure Controls were utilized during the CT exam to meet ALARA standards for radiation dose reduction. COMPARISON: Head CT without contrast dated 07/19/2022. FINDINGS: There is no evidence of acute cerebral infarct, intracranial hemorrhage, or gross mass effect. There are subtle patchy areas of low density involving the white matter of both cerebral hemispheres suspected to representing chronic small vessel ischemic disease. The brain parenchymal volume appears appropriate for patient's age. There is normal scott-white matter distinction. There is no significant midline shift or herniation. There is no evidence of hydrocephalus. The basal cisterns are unremarkable. The skull, extracranial soft tissue, and orbits are unremarkable. The paranasal sinuses are unremarkable. There is sclerosis and a small amount of consolidation involving the left mastoid air cells. IMPRESSION: 1: There is no CT evidence of acute intracranial process. If there is concern for acute cerebral infarct, MRI of the brain would better evaluate. 2: Again seen patchy areas of low density involving the white matter of both cerebral hemispheres suspected to represent chronic small vessel ischemic disease. MRI of the brain would better evaluate if there are acute white matter abnormalities such as small infarcts. Dictated by: Dictated on workstation # [id number]
--- NOTE | 2022-07-20 13:37 | Occupational Therapy Eval ---
OT Evaluation-General/PLF Medical Diagnosis Admission Date Jul 19, 2022 at 13:49 Medical Diagnosis: CVA, diplopia Onset Date: Jul 19, 2022 Therapy Diagnosis Therapy Diagnosis: n/a Height/Weight Weight (Pounds): 158 Precautions Precautions/Isolations: Fall Prevention, Standard Precautions Referral Referral Reason: Evaluation/Treatment Medical History Pertinent Medical History: HTN Current History Pt presented to ER with c/o double vision and balance issues. She was found to be hypertensive with BP of 197/117. 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 Tenecteplace given on 07/19/22. Per patient, she lives with her spouse in a single story home. She was indep with adls and iadls prior to admission. 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 She was not using any AD at baseline. Reviewed History: Yes Social History Home: Single Level Current Living Status: Spouse Entry Into Home: Stairs Without Railing Steps Into Home: 2 ADL-Prior Level of Function SCALE: Activities may be completed with or without assistive devices. 4-Pvumkpeoaq-dftbivf completes the activity by him/herself with no assistance from a helper. 5-Set-up or Clean-up Assistance-helper sets up or cleans up; patient completes activity. [place] assists only prior to or following the activity. 4-Supervision or Touching Assistance-helper provides verbal cues and/or touching/steadying and/or contact guard assistance as patient completes activity. Assistance may be provided throughout the activity or intermittently. 3-Partial/Moderate Assistance-helper does LESS THAN HALF the effort. [place] lifts, holds or supports trunk or limbs, but provides less than half the effort. 2-Substantial/Maximal Assistance-helper does MORE THAN HALF the effort. [place] lifts or holds trunk or limbs and provides more than half the effort. 1-Wddrzaehv-mnwnkf does ALL the effort. Patient does none of the effort to complete the activity. Or, the assistance of 2 or more helpers is required for the patient to complete the activity. If activity was not attempted, code reason: 7-Patient Refused. 9-Not Applicable-not attempted and the patient did not perform the activity before the current illness, exacerbation or injury. 10-Not Attempted due to Environmental Limitations-(lack of equipment, weather restraints, etc.). 88-Not Attempted due to Medical Conditions or Safety Concerns. Self Care: Independent Functional Cognition: Independent DME/Equipment: Bath Chair, Grab Bars, Shower Drive Self: Yes OT Current Status Subjective Pt denies pain, reports vision is getting better but still "a little blurry." Appearance Pt left sitting on side of bed at OT departure, all needs within reach. Mental Status/Objective Patient Orientation: Person, Place, Situation Attachments: IV, Telemetry Current Glasses/Contacts: Yes Hearing Aids: No Dentures/Partials: Yes (top only) Hand Dominance: Right Upper Extremity ROM WFL Upper Extremity Coordination fair dysdiadochokinesia and finger to nose test. Upper Extremity Strength 4/5 throughout ADL-Treatment Eating (QC): 6 Oral Hygiene (QC): 6 Lower Body Dressing (QC): 6 (per clinical judgment) On/Off Footwear (QC): 6 Supine<>sit: indep. Pt able to don/doff bilateral socks/shoes without difficulty. She independently stood, no unsteadiness exhibited. Pt ambulated throughout room without device. Mild unsteadiness but no LOB. Pt reports it is more due to new shoe insole on R side. Pt denies any self care concerns and reports the only deficit she is experiencing currently is slight blurriness in R eye. She was able to demonstrate intact visual tracking, no nystagmus observed during assessment. No further OT services warranted at this time. Education OT Patient Education: Purpose of tx/functional activities Teaching Recipient: Patient Teaching Methods: Discussion Response to Teaching: Verbalize Understanding, Return Demonstration OT Stranner Goals Shelter Goals 1=Demonstrate adherence to instructed precautions during ADL tasks. 2=Patient will verbalize/demonstrate understanding of assistive devices/modifications for ADL. 3=Patient will improve strength/tolerance for activity to enable patient to perform ADL's. OT Education/Plan Problem List/Assessment Assessment: No Skilled OT Needs ID'd Discharge Recommendations Plan/Recommendations: Discontinue OT Therapy Discharge Recommendati: Home & Family Treatment Plan/Plan of Care Treatment,Training & Education: Yes Patient would benefit from OT for education, treatment and training to promote independence in ADL's, mobility, safety and/or upper extremity function for ADL's. Plan of Care: ADL Retraining, Functional Mobility Treatment Duration: Jul 20, 2022 Frequency: 1 time per week Estimated Hrs Per Day: .25 hour per day Agreement: Yes Time/GCodes Start Time: 13:16 Stop Time: 13:26 Total Time Billed (hr/min): 10 Billed Treatment Time 1 visit Sindi Davis OT Jul 20, 2022 13:37
--- NOTE | 2022-07-20 13:37 | Physical Therapy Evaluation ---
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 2-Hkquxrzkbj-ukvmicn completes the activity by him/herself with no assistance from a helper. 5-Set-up or Clean-up Assistance-helper sets up or cleans up; patient completes activity. [place] assists only prior to or following the activity. 4-Supervision or Touching Assistance-helper provides verbal cues and/or touching/steadying and/or contact guard assistance as patient completes activity. Assistance may be provided throughout the activity or intermittently. 3-Partial/Moderate Assistance-helper does LESS THAN HALF the effort. [place] lifts, holds or supports trunk or limbs, but provides less than half the effort. 2-Substantial/Maximal Assistance-helper does MORE THAN HALF the effort. [place] lifts or holds trunk or limbs and provides more than half the effort. 8-Fuzwepwdl-cvyleb does ALL the effort. Patient does none of the effort to complete the activity. Or, the assistance of 2 or more helpers is required for the patient to complete the activity. If activity was not attempted, code reason: 7-Patient Refused. 9-Not Applicable-not attempted and the patient did not perform the activity befo re the current illness, exacerbation or injury. 10-Not Attempted due to Environmental Limitations-(lack of equipment, weather re straints, etc.). 88-Not Attempted due to Medical Conditions or Safety Concerns. Bed Mobility: 6 Transfers (B,C,W/C): 6 Gait: 6 Stairs: 6 Indoor Mobility (Ambulation): Independent Stairs: Independent Prior Devices Use: None PT Evaluation-Current Subjective Patient in bed pre tx, agrees to PT, has no complaints of pain. She states her vision is still a little blurry. Pt/Family Goals to be independent at home Objective Patient Orientation: Person, Place, Situation ROM/Strength ROM Lower Extremities WNL Strength Lower Extremities grossly 5/5 BLE Neuromuscular (Tone, Coordination, Reflexes) patient has intact peripheral vision and tracking, has slightly impaired coordination in the LLE (navas slide test) Sensory Hearing: Functional Sensation Right Lower Extremit: Intact Sensation Left Lower Extremity: Intact Transfers Roll Left to Right (QC): 6 Sit to Lying (QC): 6 Lying to Sitting/Side of Bed(Q: 6 Sit to Stand (QC): 6 Chair/Ogg-uu-Ryuyr Xfer(QC): 6 Gait Does the Patient Walk?: Yes Mode of Locomotion: Walk Anticipated Mode of Locomotion: Walk Walk 10 feet (QC): 6 Walk 50 ft with 2 Turns(QC): 6 Distance: 100' Gait Assistive Device: None Comments/Gait Description independent ambulation, patient appeared to have good balance and stability, patient states she is a little "off". Balance Sitting Static: Normal Sitting Dynamic: Normal Standing Static: Normal Standing Dynamic: Normal Assessment/Needs Patient in bed post tx with nurse call, phone, tray, all needs met. Patient is independent with mobility, encouraged patient to ambulate several times a day on her own. Patient has just slightly impaired coordination in the left leg. Rehab Potential: Good PT Plan Treatment/Plan Treatment Plan: Discontinue PT Treatment Duration: Jul 20, 2022 Frequency: Patient and/or Family Agrees t: Yes Safety Risks/Education Patient Education: Gait Training, Transfer Techniques, Correct Positioning, Safety Issues Teaching Recipient: Patient Teaching Methods: Demonstration, Discussion Response to Teaching: Reinforcement Needed Discharge Recommendations Plan DC Time/GCodes Time In: 1315 Time Out: 1326 Total Billed Treatment Time: 11 Total Billed Treatment 1 visit EVL 11' RICHIECHLOE PT Jul 20, 2022 13:37
--- NOTE | 2022-07-20 15:03 | Consultation-Cardiology ---
HPI-Cardiology Cardiology Consultation: Date of Consultation 07/20/22 Time Seen by a Provider: 12:00 Date of Admission Attending Physician Madhavi Bonilla DO Admitting Physician Admitting Physician: Madhavi Bonilla DO Attending Physician: Madhavi Bonilla DO Consulting Physician KORINA CHAN MD, MA, FACP, FACC, FSCAI, CCDS HPI: Chief Complaint: Reason for Card consult: Cryptogenic CVA Ms. Zapata is a 61 yr old female admitted to ICU 1 from the ED with CVA. She reports yesterday she was talking on the telephone when she developed a sudden onset of double vision which progressively became blurry. She states she had numbness in her lips on the right side of her face and drooping. She reports she went to get up and walk and was very unsteady in her gait. She reports some nausea. She states her spouse brought her to the hospital at which time she also felt as though her right eyelid was drooping. She denies any c/o upper and lower extremity weakness. No c/o dysphagia. She reports she did receive medicine in the ED (tPA). She reports he symptoms have continued to resolve. The facial droop and lip numbness has resolved. She continues to c/o some blurry, double vision in her right eye, be feels this is also improved. She denies any c/o palpitations. No c/o syncope or near syncope. No c/o CP. She smokes 1 PPD of cigs Review of Systems-Cardiology Review of Systems Constitutional: No chills, No fever, No malaise Eyes: As described under HPI, blurred vision, vision change Ears/Nose/Throat: No epistaxis, No nasal drainage, No recent hearing loss Respiratory: As described under HPI Cardiovascular: As described under HPI Gastrointestinal: As described under HPI Genitourinary: No dysuria, No hematuria : No Musculoskeletal: As describe under HPI Skin: No rash on exposed areas, No ulcerations on exposed areas Psychiatric/Neurological: As described under HPI; No anxiety, No depression, No seizure, No syncope Hematologic: No bleeding abnormalities [id number] Hx Patient Social History Marrital Status: Employed/Student: employed Smoking Status: Heavy Tobacco Smoker 2nd Hand Smoke Exposure: Yes Have you traveled recently?: No Alcohol Use?: No Pt feels they are or have been: No Tobacco type used: Cigarettes Immunizations Up To Date Date of Influenza Vaccine: Jul 22, 2021 Past Medical History PMH As described under Assessment. Family Medical History Family Medical History: She reports she has a brother with a-fib. She reports her father had CAD and recently passed from an [place]. Allergies and Home Medications Allergies Coded Allergies: No Known Drug Allergies (Unverified , 12/22/21) Patient Home Medication List Home Medication List Reviewed: Yes Amlodipine Besylate (Amlodipine Besylate) 5 Mg Tablet, 5 MG PO DAILY, (Reported) Entered as Reported by: MARY GRACE DIAL on 11/22/21 143 Last Action: Reviewed Ascorbate Calcium (Vitamin C) 500 Mg Tablet, 500 MG PO DAILY, (Reported) Entered as Reported by: MELISSA TRUJILLO on 07/20/221134 Last Action: Reviewed Cholecalciferol (Vitamin D3) (Vitamin D3) 25 Mcg (1000 Unit) Capsule, 25 MCG PO DAILY, (Reported) Entered as Reported by: MELISSA TRUJILLO on 07/20/221134 Last Action: Reviewed L.acid/L.casei/B.bif/B.gui/Fos (Probiotic Blend Capsule) 2 Billion Cell-50 Mg Capsule, 1 EACH PO DAILY, (Reported) Entered as Reported by: MARCUS SIGALA on 07/19/221723 Last Action: Reviewed Metoprolol Tartrate (Metoprolol Tartrate) 50 Mg Tablet, 50 MG PO BID, (Reported) Entered as Reported by: MELISSA TRUJILLO on 07/20/221134 Last Action: Reviewed Multivitamin (Multivitamin) 1 Each Tablet, 1 EACH PO DAILY, (Reported) Entered as Reported by: MELISSA TRUJILLO on 07/20/221134 Last Action: Reviewed Sertraline HCl (Sertraline HCl) 100 Mg Tablet, 50 MG PO BID, (Reported) Entered as Reported by: MARCUS SIGALA on 07/19/221723 Last Action: Reviewed Discontinued Medications ALPRAZolam (ALPRAZolam) 0.25 Mg Tablet, 0.25 MG PO DAILY PRN for ANXIETY, (Reported) Discontinued Reason: No Longer Taking Entered as Reported by: MARCUS SIGALA on 07/19/221723 Last Action: Discontinued Fexofenadine HCl (Abi Allergy) 180 Mg Tablet, 180 MG PO DAILY, (Reported) Discontinued Reason: No Longer Taking Entered as Reported by: MARCUS SIGALA on 07/19/22 1724 Last Action: Discontinued Metoprolol Tartrate (Metoprolol Tartrate 50 Mg) 50 Mg Tablet, 50 MG PO BID, (Reported) Discontinued Reason: Duplicate Order Entered as Reported by: EDMOND GUTIERREZ on 05/01/13 1601 Last Action: Discontinued Ondansetron Hcl (Zofran Po) 4 Mg Tab, 4 MG PO Q4H Discontinued Reason: No Longer Taking Prescribed by: NATHALY MOSQUERA on 05/15/13 1112 Last Action: Discontinued Sertraline Hcl (Zoloft) 50 Mg Tablet, (Reported) Discontinued Reason: Duplicate Order Entered as Reported by: KITTY GUTIERREZ on 07/21/09 0933 Last Action: Discontinued Tramadol Hcl (Ultram) 50 Mg Tab, 50 MG PO Q4H Discontinued Reason: No Longer Taking Prescribed by: NATHALY MOSQUERA on 05/01/13 1800 Last Action: Discontinued Physical Exam-Cardiology Physical Exam Vital Signs/I&O 07/20/22 07/20/22 07/20/22 07/20/22 04:00 04:00 05:00 06:00 Pulse 57 59 59 Resp 16 18 15 B/P (MAP) 151/71 (97) 140/74 (96) 143/75 (97) Pulse Ox 98 94 94 94 O2 Delivery Room Air Room Air Room Air Room Air 07/20/22 07/20/22 07/20/22 07/20/22 07:00 07:00 07:36 08:00 Temp 36.3 Pulse 98 97 Resp 26 B/P (MAP) 152/103 (119) Pulse Ox 93 98 O2 Delivery Room Air Room Air 07/20/22 07/20/22 07/20/22 07/20/22 08:00 09:00 10:00 11:00 Pulse 72 62 76 75 Resp 40 12 15 11 B/P (MAP) 118/83 (95) 125/74 (91) 164/125 (138) 154/100 (118) Pulse Ox 97 98 96 96 O2 Delivery Room Air Room Air Room Air Room Air 07/20/22 07/20/22 07/20/22 07/20/22 11:51 11:55 12:00 13:00 Temp 36.6 Pulse 60 64 Resp 16 B/P (MAP) 146/104 (118) Pulse Ox 98 98 O2 Delivery Room Air Room Air 07/20/22 00:00 Intake Total 1000 ml Balance 1000 ml Capillary Refill : Less Than 3 Seconds Constitutional: AAO x 3, well-developed, well-nourished HEENT: hearing is well preserved, oral hygience is good Neck: No carotid bruit; carotid pulses are 2 + bilaterally Respiratory: No accessory muscle use, No respiratory distress; chest expansion is symmetric, chest is bilaterally symmetric, other (prolonged exp phase) Cardiovascular: regular rate-rhythm; No JVD; S1 and S2 Gastrointestinal: No tender; soft, round, audible bowel sounds Extremities: no lower extremity edema bilateral Neurologic/Psychiatric: other (moves all extremities; AAOx3) Skin: No rash on exposed areas, No ulcerations on exposed areas Data Review Labs Laboratory Tests 07/20/22 04:35: White Blood Count 8.2, Red Blood Count 3.89, Hemoglobin 12.7, Hematocrit 37, Mean Corpuscular Volume 95, Mean Corpuscular Hemoglobin 33, Mean Corpuscular Hemoglobin Concent 35, Red Cell Distribution Width 12.2, Platelet Count 228, Mean Platelet Volume 9.6, Immature Granulocyte % (Auto) 0, Neutrophils (%) (Auto) 55, Lymphocytes (%) (Auto) 39, Monocytes (%) (Auto) 6, Eosinophils (%) (Auto) 0, Basophils (%) (Auto) 0, Neutrophils # (Auto) 4.5, Lymphocytes # (Auto) 3.2, Monocytes # (Auto) 0.5, Eosinophils # (Auto) 0.0, Basophils # (Auto) 0.0, Immature Granulocyte # (Auto) 0.0, Sodium Level 137, Potassium Level 3.7, Chloride Level 106, Carbon Dioxide Level 22, Anion Gap 9, Blood Urea Nitrogen 9, Creatinine 0.92, Estimat Glomerular Filtration Rate 71, BUN/Creatinine Ratio 10, Glucose Level 95, Calcium Level 9.2, Corrected Calcium 9.3, Phosphorus Level 4.0, Magnesium Level 2.0, Total Bilirubin 0.5, Aspartate Amino Transf (AST/SGOT) 17, Alanine Aminotransferase (ALT/SGPT) 10, Alkaline Phosphatase 64, Total Pr otein 6.7, Albumin 3.9, Triglycerides Level 217H, Cholesterol Level 223H, LDL Cholesterol Direct 156H, VLDL Cholesterol 43H, HDL Cholesterol 35L Microbiology 07/19/22 MRSA Screen - Final, Complete MRSA not isolated 07/19/22 Urine Culture - Preliminary, Resulted Lisa tropicalis A/P-Cardiology Assessment/Admission Diagnosis Cryptogenic CVA - management per stroke team - CTA head on 07-19-22: Brain shows patchy nonspecific white matter changes but no hemorrhage or mass. - CT angiogram [id number] shows a moderate 50% stenosis proximal right ICA owing to soft plaque, there is a dominant widely patent left vertebral artery and a diminutive right cervical vertebral artery. - Echo of 07/20/22: LVEF 55-60%, PASP 20-25 mmHg HTN HLD Tobaccoism - 1 PPD cigs - cessation advised Discussion and Recomendations Cryptogenic CVA - management per stroke team - advise ILR implant prior to admission to eval for occult arrhythmia (a- fib/flutter) - she agrees - Continue ASA Adjust anti-hypertensive regimen as indicated Monitor lab - replace electrolytes as indicated Add statin to regimen Further recs will be based on her hospital course We would like to thank Dr. Bonilla for this consult KORINA CHAN MD FACP FAC CCDS Jul 20, 2022 15:03
[2022-07-20] MEDS: ASPIRIN 325 MG (5 GR) TABLET PO SCH (15:48)
[2022-07-20] MEDS: meTOprolol TARTRATE 50 MG (LOPRESSOR) TAB PO SCH (20:51)
[2022-07-21] MEDS ORDERED: traZODone 50 MG (DESYREL) TAB PO PRN (00:45)
[2022-07-21 04:24] LABS: BASOPHILS % (AUTO) 1 % (0-10); EOSINOPHILS % (AUTO) 0 % (0-10); HEMATOCRIT 36 % (35-52); HEMOGLOBIN 12.6 g/dL (11.5-16.0); LYMPHOCYTES # (AUTO) 2.7 10^3/uL (1.0-4.0); LYMPHOCYTES % (AUTO) 34 % (12-44); MEAN CORPUSCULAR HEMOGLOBIN 33 pg (25-34); MEAN CORPUSCULAR HGB CONC 35 g/dL (32-36); MEAN CORPUSCULAR VOLUME 94 fL (80-99); MEAN PLATELET VOLUME 9.9 fL (9.0-12.2); MONOCYTES # (AUTO) 0.4 10^3/uL (0.0-1.0); MONOCYTES % (AUTO) 6 % (0-12); NEUTROPHILS # (AUTO) 4.6 10^3/uL (1.8-7.8); NEUTROPHILS % (AUTO) 59 % (42-75); PLATELET COUNT 215 10^3/uL (130-400); WHITE BLOOD COUNT 7.8 10^3/uL (4.3-11.0)
[2022-07-21 04:36] LABS: ALBUMIN 3.9 GM/DL (3.2-4.5); POTASSIUM 3.4 MMOL/L (3.6-5.0)
[2022-07-21 04:38] LABS: CALCIUM 8.9 MG/DL (8.5-10.1)
[2022-07-21 04:39] LABS: TOTAL PROTEIN 6.7 GM/DL (6.4-8.2)
[2022-07-21 04:41] LABS: BILIRUBIN,TOTAL 0.6 MG/DL (0.1-1.0)
[2022-07-21 04:42] LABS: CREATININE SERUM 0.81 MG/DL (0.60-1.30); PHOSPHORUS 3.8 MG/DL (2.3-4.7)
[2022-07-21] MEDS: MAGNESIUM 1 GM/100 ML IVPB 100 ML IV SCH (05:07)
[2022-07-21] MEDS: POTASSIUM CL 10MEQ/50ML IVPB 50 ML IV SCH (05:07)
[2022-07-21] MEDS: KCL 20 MEQ TAB (K-DUR) PO SCH (05:08)
[2022-07-21] MEDS: CATHETER FLUSH 10 ML SYR IVP SCH (05:42)
--- NOTE | 2022-07-21 07:39 | Tele-ICU Progress Note ---
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 Sepsis Event Evaluation Height, Weight, BMI Height: '" Weight: 158lbs. oz. 71.359987hv; 26.85 BMI Method:Stated Exam Exam Patient acknowledged, consented, and participated in this virtual visit which was conducted using real time audio/video Vital Signs Date Time Temp Pulse Resp B/P (MAP) Pulse Ox O2 Delivery O2 Flow Rate FiO2 07/21/22 04:00 96 Room Air 07/21/22 03:37 36.4 79 18 114/71 (85) 94 Room Air 07/21/22 01:00 76 07/20/22 23:38 98 Room Air 07/20/22 23:25 36.0 72 20 121/72 (88) 93 Room Air 07/20/22 20:08 97 Room Air 07/20/22 20:07 Room Air 07/20/22 20:00 76 20 148/93 (111) 96 Room Air 07/20/22 19:27 36.0 07/20/22 19:16 70 07/20/22 18:00 63 22 128/82 (97) 95 Room Air 07/20/22 17:00 87 27 112/72 (85) 97 Room Air 07/20/22 16:00 98 Room Air 07/20/22 16:00 63 19 154/88 (110) 96 Room Air 07/20/22 15:50 36.5 07/20/22 15:00 68 22 169/127 (141) 93 Room Air 07/20/22 14:00 58 20 150/80 (103) 96 Room Air 07/20/22 13:00 67 53 133/82 (99) 94 Room Air 07/20/22 13:00 64 07/20/22 12:00 60 16 146/104 (118) 98 Room Air 07/20/22 11:55 98 Room Air 07/20/22 11:51 36.6 07/20/22 11:00 75 11 154/100 (118) 96 Room Air 07/20/22 10:00 76 15 164/125 (138) 96 Room Air 07/20/22 09:00 62 12 125/74 (91) 98 Room Air 07/20/22 08:00 72 40 118/83 (95) 97 Room Air 07/20/22 08:00 98 Room Air 07/20/22 07:36 36.3 I & O 07/21/22 07:00 Intake Total 2702 ml Output Total 1900 ml Balance 802 ml Height & Weight Height: '" Weight: 158lbs. oz. 71.493264wl; 26.85 BMI Method:Stated General Appearance: No Apparent Distress Neck: Supple Respiratory: Lungs Clear Cardiovascular: Regular Rate, Rhythm, Gallop/S4 Capillary Refill: Less Than 3 Seconds Peripheral Pulses: 1+ Dorsalis Pedis (R), 1+ Left Dors-Pedis (L) Gastrointestinal: non tender, soft; No distended Extremity: Normal Capillary Refill, Normal Inspection, Non Tender, No Calf Tenderness, No Pedal Edema, Other (appetite fair) Neurologic/Psychiatric: Alert, Oriented x3, No Motor/Sensory Deficits, Normal Mood/Affect Skin: Warm/Dry Results Lab Laboratory Tests 07/19/22 11:55 07/20/22 04:35 07/21/22 03:58 Assessment/Plan Assessment/Plan Probable CVA, improved after lytic therapy, Echo results noted, Placement of implantable loop recorder per cardiology BP is controlled Critical Care: Critically Ill Patient Time spent with patient (mins): 30 RAJ WALLS MD Jul 21, 2022 07:39
[2022-07-21] MEDS: DOCUSATE SODIUM 100 MG (COLACE) CAP PO SCH (08:50)
[2022-07-21] MEDS: ASPIRIN 325 MG (5 GR) TABLET PO SCH (08:51)
[2022-07-21] MEDS: meTOprolol TARTRATE 50 MG (LOPRESSOR) TAB PO SCH (08:51)
[2022-07-21] MEDS ORDERED: NICOTINE 14 MG (NICODERM) PATCH TD SCH (09:00)
[2022-07-21] MEDS ORDERED: KCL 20 MEQ TAB (K-DUR) PO ONE (09:00)
[2022-07-21] MEDS ORDERED: ASPIRIN 325 MG (5 GR) TABLET PO SCH (09:00)
--- NOTE | 2022-07-21 09:17 | Diagnostic Imaging Report ---
PROCEDURE: MR imaging of the brain without contrast. TECHNIQUE: Multiplanar, multisequence MR imaging of the brain was performed without contrast. INDICATION: Double vision. Loss of balance. Concern for acute ischemia. COMPARISON: CT head on 07/20/2022. FINDINGS: No acute ischemia, mass, or hemorrhage. Focal and confluent T2 hyperintense signal seen in the periventricular and subcortical white matter. The ventricles, cortical sulci, and basilar cisterns are symmetric and unremarkable. The sellar and suprasellar regions have a normal appearance. The brainstem and posterior fossa are unremarkable. The paranasal sinuses demonstrate normal signal characteristics. Bilateral small pleural effusions are seen. The globes and orbits are symmetric and unremarkable. The scalp and calvarium have a normal appearance. IMPRESSION: 1. No acute ischemia, mass, or hemorrhage. 2. Chronic microvascular disease in the periventricular and subcortical white matter. Dictated by: Dictated on workstation # [id number]
[2022-07-21] MEDS ORDERED: LIDOCAINE 1% INJ 30 ML (XYLOCAINE) VIAL ONE (09:53)
--- NOTE | 2022-07-21 10:21 | Progress Note - Cardiology ---
Cardiology SOAP Progress Note Subjective: No cp or palp or syncope or shortness of breath No n/v/d Weakness has resolved No swelling Objective: I&O/Vital Signs 07/20/22 07/20/22 07/21/22 07/21/22 23:25 23:38 01:00 03:37 Temp 36.0 36.4 Pulse 72 76 79 Resp 20 18 B/P (MAP) 121/72 (88) 114/71 (85) Pulse Ox 93 98 94 O2 Delivery Room Air Room Air Room Air 07/21/22 07/21/22 07/21/22 04:00 07:00 08:00 Temp 36.5 Pulse 82 Pulse Ox 96 O2 Delivery Room Air 07/21/22 00:00 Intake Total 1802 ml Output Total 1250 ml Balance 552 ml Weight (Pounds): 158 Weight (Calculated Kilograms): 71.500967 Constitutional: AAO x 3, well-developed, well-nourished Respiratory: No accessory muscle use, No respiratory distress; chest expansion is symmetric, chest is bilaterally symmetric, other (prolonged exp phase) Cardiovascular: regular rate-rhythm; No JVD; S1 and S2 Gastrointestional: No tender; soft, round, audible bowel sounds Extremities: no lower extremity edema bilateral Neurologic/Psychiatric: other (moves all extremities; AAOx3) Skin: No rash on exposed areas, No ulcerations on exposed areas Results/Procedures: Labs Laboratory Tests 07/21/22 03:58: White Blood Count 7.8, Red Blood Count 3.84, Hemoglobin 12.6, Hematocrit 36, Mean Corpuscular Volume 94, Mean Corpuscular Hemoglobin 33, Mean Corpuscular Hemoglobin Concent 35, Red Cell Distribution Width 12.2, Platelet Count 215, Mean Platelet Volume 9.9, Immature Granulocyte % (Auto) 0, Neutrophils (%) (Auto) 59, Lymphocytes (%) (Auto) 34, Monocytes (%) (Auto) 6, Eosinophils (%) (Auto) 0, Basophils (%) (Auto) 1, Neutrophils # (Auto) 4.6, Lymphocytes # (Auto) 2.7, Monocytes # (Auto) 0.4, Eosinophils # (Auto) 0.0, Basophils # (Auto) 0.0, Immature Granulocyte # (Auto) 0.0, Sodium Level 137, Potassium Level 3.4L, Chloride Level 107, Carbon Dioxide Level 20L, Anion Gap 10, Blood Urea Nitrogen 7, Creatinine 0.81, Estimat Glomerular Filtration Rate 83, BUN/Creatinine Ratio 9, Glucose Level 109H, Calcium Level 8.9, Corrected Calcium 9.0, Phosphorus Level 3.8, Magnesium Level 2.0, Total Bilirubin 0.6, Aspartate Amino Transf (AST/SGOT) 17, Alanine Aminotransferase (ALT/SGPT) 11, Alkaline Phosphatase 63, Total Protein 6.7, Albumin 3.9 Microbiology 07/19/22 MRSA Screen - Final, Complete MRSA not isolated 07/19/22 Urine Culture - Preliminary, Resulted Lisa tropicalis Laboratory Tests 07/19/22 11:55 07/20/22 04:35 07/21/22 03:58 A/P: Assessment: Cryptogenic CVA - management by Dr Bonilla - CTA head on 07-19-22: Brain shows patchy nonspecific white matter changes but no hemorrhage or mass. - CT angiogram [id number] shows a moderate 50% stenosis proximal right ICA owing to soft plaque, there is a dominant widely patent left vertebral artery and a diminutive right cervical vertebral artery. - Echo of 07/20/22: LVEF 55-60%, PASP 20-25 mmHg - ILR implanted on 07/21/22 HTN, controlled HLD Tobaccoism - 1 PPD cigs - cessation advised Plan: * Replenish K * Continue antiplatelet therapy * ILR implanted after having obtained informed consent * Outpt f/u advised * Ok to d/c from cardiac standpoin KORINA CHAN MD FACP [facility] CCDS Jul 21, 2022 10:21
[2022-07-21] MEDS ORDERED: ASPI-808 PO (12:44)
[2022-07-21] MEDS ORDERED: NICO1PAT38 TD (12:44)
[2022-07-21] MEDS ORDERED: ATOR80TA76 PO (12:44)
--- NOTE | 2022-07-21 12:55 | Discharge Summary ---
Diagnosis/Chief Complaint Date of Admission Jul 19, 2022 at 13:49 Date of Discharge Discharge Date: Jul 21, 2022 Discharge Diagnosis 1. Cryptogenic Stroke--symptoms improving, S/P tenecteplase and loop recorder placement 2. Diplopia/3rd Nerve Palsy/Lateral Gaze Disturbance--secondary to stroke, improving 3. Hypertension--stable 4. Hyperlipidemia--home on atorvastatin 5. Tobacco Abuse--smoking cessation, home on nicotine patch 6. Dysequilibrium--improved 7. Hypokalemia--replaced 8. Right Carotid Artery Stenosis--50% 9. Chronic Microvascular Ischemia--medical management Reason Hospital Visit This is a 61 year old female with a known history of hypertension who was brought to the emergency room by her due to sudden onset of double vision and imbalance. She also reported numbness to the right side of her mouth. When she arrived in the emergency room she was hypertensive with a blood pressure of 197/117. 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 She was also noted to have mild right facial droop. Her NIH stroke was 3. Stroke activation was paged. A CT angiogram of the head and neck showed no acute bleed or acute ischemia. There was 50% stenosis of her right ICA. Dr. Johnson, stroke neurologist at [facility], was consulted and felt her presentation and symptoms were consistent with a midbrain stroke and she was a candidate for tenecteplase. Patient agreed to the treatment and will be admitted to the ICU. Discharge Summary Hospital Course Was the Problem List Reviewed?: Yes Hospital Course This is a 61 year old female with a known history of hypertension who was brought to the emergency room by her due to sudden onset of double visio n and imbalance. She also reported numbness to the right side of her mouth. When she arrived in the emergency room she was hypertensive with a blood pressure of 197/117. 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 She was also noted to have mild right facial droop. Her NIH stroke was 3. Stroke activation was paged. A CT angiogram of the head and neck showed no acute bleed or acute ischemia. There was 50% stenosis of her right ICA. Dr. Johnson, stroke neurologist at [facility], was consulted and felt her presentation and symptoms were consistent with a midbrain stroke and she was a candidate for tenecteplase. Patient agreed to the treatment and was admitted to the ICU. The following day she had a repeat CT scan of the brain at 24hrs post tenecteplase which showed no ischemia and no acute bleed or acute changes. Aspirin 325mg was started after the repeat normal CT of her brain--24hrs after the tenecteplase. Her double vision and lateral gaze disturbances were improving. Her disequilibrium resolved and her facial numbness was also resolved. A 2-D ECHO was normal with preserved EF of 55-60%. PT and OT were started and patient did well with amubulation. A ST/bedside swallow evaluation showed no deficits. She did have smoking cessation education. Cardiology was consulted and it was felt that a loop recorder should be implanted to rule out arrhythmia as the source of her stroke. She underwent a MRI of the brain prior to the loop recorder placement and this showed chronic microvascular ischemia. She will be discharged home on aspirin 325mg daily, atorvastatin 80mg po q HS and resume her metoprolol and amlodopine for blood pressure. She will also go home on a nicoderm patch with smoking cessation advised. She will follow up with me in [address] Morales in 2-4 weeks. If she has any return or worsening of symptoms, she will return to the emergency room. Labs Laboratory Tests 07/19/22 11:55: D-Dimer 1.80H, Glucose Level 123H, Albumin 4.6H 07/19/22 11:58: Glucometer 125H 07/19/22 12:32: Urine RBC (Auto) 1+H, Urine RBC 2-5H, Urine Crystals PRESENTH, Urine Amorphous Sediment MOD MAINE URATESH, Urine Bacteria FEWH 07/20/22 04:35: Triglycerides Level 217H, Cholesterol Level 223H, LDL Cholesterol Direct 156H, VLDL Cholesterol 43H, HDL Cholesterol 35L 07/21/22 03:58: Potassium Level 3.4L, Carbon Dioxide Level 20L, Glucose Level 109H Procedures None. Discharge Physical Examination Allergies: Coded Allergies: No Known Drug Allergies (Unverified , 12/22/21) Vitals & I&Os Vital Signs Date Time Temp Pulse Resp B/P (MAP) Pulse Ox O2 Delivery O2 Flow Rate FiO2 07/21/22 11:58 Room Air 07/21/22 08:00 36.5 07/21/22 07:00 82 07/21/22 04:00 96 07/21/22 03:37 18 114/71 (85) General Appearance: Alert, Oriented X3, Cooperative, No Acute Distress HEENT: Other (still with latera gaze disturbance but improved--eyes snap back with lateral gaze to either right or left) Respiratory: Clear to Auscultation Cardiovascular: Regular Rate Abdominal: Normal Bowel Sounds, Soft, No Tenderness Neuro: Normal Gait Psych/Mental Status: Mental Status NL, Mood NL Discharge Home Medications Reviewed and agree with Discharge Medication list on patient's Discharge Instruc tion sheet Instructions to Patient/Family Please see electronic discharge instructions given to patient. SILVESTRE MORTENSEN DO Jul 21, 2022 12:55
[2022-07-21 13:00] VITALS: BP 126/71
--- NOTE | 2022-07-21 13:45 | OPERATIVE REPORT ---
DATE OF SERVICE: 07/21/2022 PREOPERATIVE DIAGNOSIS: Cryptogenic stroke. POSTOPERATIVE DIAGNOSIS: Cryptogenic stroke. PROCEDURE PERFORMED: Implantable loop recorder implantation. INDICATIONS FOR PROCEDURE: The patient is a 74-year-old lady, who recently had a thromboembolic cerebrovascular accident of which is the cause is unclear. The possibility of atrial fibrillation has been considered. Implantable loop recorder implantation was advised and was carried out today after having obtained an informed consent. DESCRIPTION OF PROCEDURE: [facility] Lidocaine 1% was used for local anesthesia. The tools provided with the [employer] LINQ II Devices were used to make a subcutaneous pocket anterior to the left fourth intercostal space into which the device was placed and the wound edges were closed using Dermabond and Steri-Strips. The serial number of the device is [id number]. She tolerated the procedure well. Job ID: [id number] DocumentID: [id number] Dictated Date: 07/21/2022 10:17:56 Ccie Date: 07/21/2022 13:45:40 Dictated By: KORINA CHAN MD, MA, FACP, FACC,
[2022-07-22] MEDS ORDERED: NICOTINE PATCH REMOVAL TP SCH (08:59)
== END 2022-07-21 13:00 | disposition home or self-care (01) | DRG 42 ==
LOC: EDUNIT# 11:51 → ER 11:53 → ICU 13:49
PROVIDERS: ADMIT Family Medicine; ATTEND Family Medicine
PROC: 3E03317 Introduction of Other Thrombolytic into Peripheral Vein, Percutaneous Approach (ICD-10-PCS; principal; 2022-07-19)
PROC: 0JH632Z Insertion of Monitoring Device into Chest Subcutaneous Tissue and Fascia, Percutaneous Approach (ICD-10-PCS; 2022-07-21)
DX: I63.50 Cerebral infarction due to unspecified occlusion or stenosis of unspecified cerebral artery (principal); H49.01 Third [oculomotor] nerve palsy, right eye; H53.2 Diplopia; R29.810 Facial weakness; H55.09 Other forms of nystagmus; R26.81 Unsteadiness on feet; R29.703 NIHSS score 3; I10 Essential (primary) hypertension; I65.21 Occlusion and stenosis of right carotid artery; F17.210 Nicotine dependence, cigarettes, uncomplicated; F41.9 Anxiety disorder, unspecified; F32.A Depression, unspecified
CPT/HCPCS: 33285; 36415; 70450; 70496; 70498; 70551; 71045; 80053; 80061; 81000; 82947; 83735; 84100; 84484; 85025; 85379; 85610; 85730; 87081; 87088; 87106; 92977; 93005; 93041; 93306; 94664; 96374; 99291

== ENCOUNTER → 2023-07-02 | Outpatient (CLI) | payer OTHER ==
[~2023-07-02] MED LIST changes: +ALPR0.254 PO; +ASCO-262 PO; +ASPI-808 PO; +ATOR80TA76 PO; +CHOL10007 PO; +FEXO180T84 PO; +L.AC1CAP10 PO; +METO50TA15 PO; +MULT-1136 PO; +NICO1PAT38 TD; +SERT-414 PO
--- NOTE | 2023-07-02 13:29 | Diagnostic Imaging Report ---
CT Lung Screening INDICATION:23 pack year smoking history, current smoker for baseline low-dose CT screening. TECHNIQUE: Noncontrast, low-dose CT imaging performed according to the lung cancer screening protocol. Auto Exposure Controls were utilize during the CT exam to meet ALARA standards for radiation dose reduction. COMPARISON:Baseline FINDINGS:3 mm average diameter juxtapleural nodule in the right lower lobe noted showing no suspicious feature. No concerning spiculated or dominant lung mass. No findings suggestive of active lung cancer. There is no thoracic adenopathy. There is no effusion or pneumothorax. There is atherosclerotic aortic calcifications nonaneurysmal. There are coronary artery calcifications most notably along the LAD. There is a tiny hiatal hernia and the visible upper abdomen unremarkable. IMPRESSION:No findings of lung cancer, continued annual low-dose CT screening followup recommended. LUNG-RADS CATEGORY:Category 2 MODIFIER:None OTHER SIGNIFICANT FINDINGS:Aortic and coronary artery atherosclerotic vascular calcifications and benign-appearing subpleural granulomas. Dictated by: Dictated on workstation # [id number]
--- NOTE | 2023-07-02 16:40 | Diagnostic Imaging Report ---
PROCEDURE: US Renal Bilateral. TECHNIQUE: Multiple real-time grayscale images were obtained over the kidneys in various projections bilaterally. INDICATION: Left flank pain. Right kidney measures 10.4 x 3.9 x 4.7 cm and the left kidney measures 10.1 x 4.5 x 5.2 cm. Cortical thickness and echogenicity is normal bilaterally. No calculi are seen. There is no hydronephrosis. Bilateral ureteral jets were visualized in the bladder. Incidental note is made of a gallstone noted in the gallbladder. IMPRESSION: 1. Unremarkable renal ultrasound. 2. Cholelithiasis. Dictated by: Dictated on workstation # [id number]
== END ==
LOC: RAD 11:39
PROVIDERS: ATTEND Family Medicine
DX: Z12.2 Encounter for screening for malignant neoplasm of respiratory organs (principal); K80.20 Calculus of gallbladder without cholecystitis without obstruction; Z72.0 Tobacco use
CPT/HCPCS: 71271; 76770